=== PATIENT | female | born 1985 | race Caucasian/White ===

== ENCOUNTER 2017-02-04 18:22 | Emergency (ER) | payer SELFPAY ==
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
[2017-02-04 18:39] VITALS: BP 119/81
[2017-02-04] MEDS ORDERED: ACETAMINOPHEN 325 MG TABLET PO ONE (19:50)
== END 2017-02-04 21:42 | disposition left against medical advice (07) ==
LOC: ER 18:22
DX: H92.01 Otalgia, right ear (principal); R42 Dizziness and giddiness; J45.909 Unspecified asthma, uncomplicated; J44.9 Chronic obstructive pulmonary disease, unspecified; Z91.013 Allergy to seafood; Z53.20 Procedure and treatment not carried out because of patient's decision for unspecified reasons
CPT/HCPCS: 99281

== ENCOUNTER 2017-02-13 21:00 | Emergency (ER) | payer SELFPAY ==
[2017-02-14] MEDS ORDERED: HYDROCODONE/ACETAMINOPHEN 5-325 MG TABLET PO ONE (02:10)
--- NOTE | 2017-02-14 02:14 | ER Document Report ---
ED Respiratory Problem - General Chief Complaint: Cold Symptoms Stated Complaint: COUGH Time seen by provider: 02:14 Mode of Arrival: Ambulatory Information source: Patient TRAVEL OUTSIDE OF THE [place] IN LAST 30 DAYS: No - HPI Patient complains to provider of: Cough Onset: Other - 2 months Duration: Intermittent episodes Quality of pain: Achy Severity: Moderate Pain Level: 3 Short of Breath: Mild Cough: Nonproductive Associated symptoms: Congestion, Cough, Fever, Sore Throat Similar symptoms previously: Yes Recently seen / treated by doctor: Yes Notes: Patient is a 31-year-old female with a history of asthma who presents to the emergency room complaining of sinus congestion, sore throat, difficulty swallowing, nonproductive painful cough that's been persistent 2 months, symptoms have been waxing and waning, she previously saw primary care provider and was placed on pseudoephedrine, Mucinex and prednisone, she also use albuterol nebulizers at home, with minimal intermittent relief, she reports over the past 2 days she is also lost her voice - Related Data Allergies/Adverse Reactions: iodine [Iodine] Allergy (Severe, Verified 02/13/17 22:34) swelling shellfish derived Allergy (Verified 02/13/17 22:34) Past Medical History - General Information source: Patient - Social History Smoking Status: Never Smoker Chew tobacco use (# tins/day): No Frequency of alcohol use: None Drug Abuse: None Family History: CAD, Thyroid Disfunction, Other - Asthma, COPD - Past Medical History Cardiac Medical History: Pulmonary Medical History: Reports: Hx Asthma, Hx Bronchitis, Hx COPD, Hx Pneumonia Neurological Medical History: Reports: Hx Migraine, Hx Seizures Endocrine Medical History: Reports: Hx Hyperthyroidism Renal/ Medical History: Reports: Hx Ovarian Cysts. Denies: Hx Peritoneal Dialysis GI Medical History: Reports: Hx Gastroesophageal Reflux Disease, Hx Hiatal Hernia Musculoskeltal Medical History: Reports Hx Musculoskeletal Deformity, Reports Hx Musculoskeletal Trauma Skin Medical History: Psychiatric Medical History: Reports: Hx Anxiety, Hx Attention Deficit Hyperactivity Disorder, Hx Bipolar Disorder, Hx Depression Past Surgical History: Reports: Hx Dilation and Curettage, Hx Gynecologic Surgery - CERVICAL BIOPSY/TIGHTENING OF CERVIX - Immunizations Immunizations up to date: Yes Hx Diphtheria, Pertussis, Tetanus Vaccination: Yes Review of Systems - Review of Systems Constitutional: See HPI EENT: See HPI Cardiovascular: No symptoms reported Respiratory: See HPI Gastrointestinal: No symptoms reported Genitourinary: No symptoms reported Female Genitourinary: No symptoms reported Musculoskeletal: No symptoms reported Skin: No symptoms reported Hematologic/Lymphatic: No symptoms reported Neurological/Psychological: No symptoms reported -: Yes All other systems reviewed and negative Physical Exam - Vital signs Vitals: Temp Pulse Resp BP Pulse Ox 98.3 F 94 16 111/75 97 02/13/17 21:48 02/13/17 21:48 02/13/17 21:48 02/13/17 21:48 02/13/17 21:48 Interpretation: Normal - General General appearance: Appears well, Alert - HEENT Head: Normocephalic, Atraumatic Eyes: Normal Conjunctiva: Normal Extraocular movements intact: Yes Eyelashes: Normal Pupils: PERRL Nasal: Normal Mouth/Lips: Normal Mucous membranes: Normal Pharynx: Erythema Neck: Normal - Respiratory Respiratory status: No respiratory distress Chest status: Tender - Tender to palpate in the right anterior chest wall Breath sounds: Normal Chest palpation: Normal - Cardiovascular Rhythm: Regular Heart sounds: Normal auscultation Murmur: No - Abdominal Inspection: Normal Distension: No distension Bowel sounds: Normal Tenderness: Nontender Organomegaly: No organomegaly - Back Back: Normal, Nontender - Extremities General upper extremity: Normal inspection, Nontender, Normal color, Normal ROM , Normal temperature General lower extremity: Normal inspection, Nontender, Normal color, Normal ROM , Normal temperature, Normal weight bearing. No: Jan's sign - Neurological Neuro grossly intact: Yes Cognition: Normal Orientation: AAOx4 Yash Coma Scale Eye Opening: Spontaneous Yash Coma Scale Verbal: Oriented [place] Coma Scale Motor: Obeys Commands Yash Coma Scale Total: 15 Speech: Normal Motor strength normal: LUE, RUE, LLE, RLE Sensory: Normal - Psychological Associated symptoms: Normal affect, Normal mood - Skin Skin Temperature: Warm Skin Moisture: Dry Skin Color: Normal Course - Re-evaluation Re-evalutation: 02/14/17 05:52 Patient with signs of viral upper respiratory illness, she has tried several treatment modalities at home, which is been unsuccessful, patient was provided with hydrocodone for treatment of her symptoms, advised to follow-up with a primary care provider or return if symptoms worsen, patient acknowledges understanding and agreement with this plan - Vital Signs Vital signs: Temp Pulse Resp BP Pulse Ox 98.2 F 77 16 109/70 98 02/14/17 03:38 02/14/17 03:38 02/14/17 03:38 02/14/17 03:38 02/14/17 03:38 - Diagnostic Test Radiology reviewed: Image reviewed, Reports reviewed Discharge - Discharge Clinical Impression: Viral upper respiratory illness Condition: Stable Disposition: HOME, SELF-CARE Instructions: Upper Respiratory Illness ([facility]), Viral Syndrome ([facility]) Additional Instructions: Follow up with your primary care provider in one to 2 days. Return to the emergency room immediately if symptoms worsen or any additional concerns. Prescriptions: Hydrocodone/Acetaminophen [Hydrocodon-Acetaminophen 5-325] 1 each PO Q6 #20 tablet
[2017-02-14] MEDS ORDERED: HYDROCODONE/ACETAMINOPHEN 5-325 MG 6 TAB/DSPK PO PRN (03:27)
[2017-02-14 03:43] VITALS: BP 109/70
== END 2017-02-14 03:38 | disposition home or self-care (01) ==
LOC: ER 21:00
DX: J06.9 Acute upper respiratory infection, unspecified (principal); B97.89 Other viral agents as the cause of diseases classified elsewhere; R05 Cough; J02.9 Acute pharyngitis, unspecified; R13.10 Dysphagia, unspecified; R49.0 Dysphonia; R09.81 Nasal congestion; J44.9 Chronic obstructive pulmonary disease, unspecified; Z91.013 Allergy to seafood; Z87.01 Personal history of pneumonia (recurrent)
CPT/HCPCS: 71020; 99283

== ENCOUNTER 2017-04-06 11:25 | Emergency (ER) | payer SELFPAY ==
[2017-04-06] MEDS ORDERED: HYDROCODONE/ACETAMINOPHEN 5-325 MG TABLET PO ONE (12:01)
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
[2017-04-06 13:53] VITALS: BP 100/64
== END 2017-04-06 13:52 | disposition home or self-care (01) ==
LOC: ER 11:25
DX: R07.89 Other chest pain (principal); Y09 Assault by unspecified means; J44.9 Chronic obstructive pulmonary disease, unspecified; F17.200 Nicotine dependence, unspecified, uncomplicated
CPT/HCPCS: 71020; 99283

== ENCOUNTER 2017-05-19 18:39 | Emergency (ER) | payer SELFPAY ==
[2017-05-19] MEDS ORDERED: NITROFURANTOIN MONOHYD/M-CRYST 100 MG CAPSULE PO ONE (20:01)
[2017-05-19] MEDS ORDERED: PHENAZOPYRIDINE HCL 200 MG TABLET PO ONE (20:01)
[2017-05-19 20:04] LABS: AMORPHOUS SEDIMENT,URINE TRACE /HPF; APPEARANCE,URINE CLOUDY; BILIRUBIN,URINE NEGATIVE (NEGATIVE); GLUCOSE, URINE NEGATIVE (NEGATIVE); KETONES,URINE NEGATIVE (NEGATIVE); LEUKOCYTE ESTERASE,URINE NEGATIVE (NEGATIVE); NITRITE,URINE POSITIVE (NEGATIVE); PROTEIN,URINE NEGATIVE (NEGATIVE); URINE SPECIFIC GRAVITY 1.015; UROBILINOGEN,URINE NEGATIVE mg/dL (<2.0)
[2017-05-19] MEDS ORDERED: KETOROLAC TROMETHAMINE 60 MG/2 ML SDV IM ONE (20:07)
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
[2017-05-19 20:50] VITALS: BP 148/88
== END 2017-05-19 20:50 | disposition home or self-care (01) ==
LOC: ER 18:39
DX: N39.0 Urinary tract infection, site not specified (principal); J44.9 Chronic obstructive pulmonary disease, unspecified
CPT/HCPCS: 99283; 96372; 81025; 81001; J1885; J3490; J8499

== ENCOUNTER 2017-06-04 12:49 | Emergency (ER) | payer SELFPAY ==
[2017-06-04] MEDS ORDERED: PROMETHAZINE HCL 25 MG TABLET PO ONE (13:55)
[2017-06-04] MEDS ORDERED: IBUPROFEN 600 MG TABLET PO ONE (13:55)
--- NOTE | 2017-06-04 13:57 | ER Document Report ---
ED Medical Screen (RME) - General Chief Complaint: Pelvic Pain Stated Complaint: PELVIC PAIN/PRESSURE Time Seen by Provider: 06/04/17 13:55 Notes: Patient says that she is having difficulty with pain in the lower abdomen. She was here couple of weeks ago for the same pain until she had a UTI and was put on Macrobid and Pyridium. Her symptoms did improve for a couple of days but have worsened and she is now out of her medications. She does not have any vomiting although she is nauseated. She is having urinary frequency and blood in her urine again. Denies fever. No abdominal surgeries. TRAVEL OUTSIDE OF THE [place] IN LAST 30 DAYS: No - Related Data Allergies/Adverse Reactions: iodine [Iodine] Allergy (Severe, Verified 06/04/17 13:05) swelling shellfish derived Allergy (Verified 06/04/17 13:05) Past Medical History - Social History Frequency of alcohol use: None Drug Abuse: None - Past Medical History Cardiac Medical History: Pulmonary Medical History: Reports: Hx Asthma, Hx Bronchitis, Hx COPD, Hx Pneumonia Neurological Medical History: Reports: Hx Migraine, Hx Seizures Endocrine Medical History: Reports: Hx Hyperthyroidism Renal/ Medical History: Reports: Hx Ovarian Cysts. Denies: Hx Peritoneal Dialysis GI Medical History: Reports: Hx Gastroesophageal Reflux Disease, Hx Hiatal Hernia Musculoskeltal Medical History: Reports Hx Musculoskeletal Deformity, Reports Hx Musculoskeletal Trauma Skin Medical History: Psychiatric Medical History: Reports: Hx Anxiety, Hx Attention Deficit Hyperactivity Disorder, Hx Bipolar Disorder, Hx Depression Past Surgical History: Reports: Hx Dilation and Curettage, Hx Gynecologic Surgery - CERVICAL BIOPSY/TIGHTENING OF CERVIX - Immunizations Immunizations up to date: Yes Hx Diphtheria, Pertussis, Tetanus Vaccination: Yes
[2017-06-04 14:11] LABS: ABSOLUTE BASOPHILS # (AUTO) 0.1 10^3/uL (0.0-0.2); ABSOLUTE EOSINOPHILS # (AUTO) 0.2 10^3/uL (0.0-0.6); ABSOLUTE LYMPHOCYTES (AUTO) 1.5 10^3/uL (0.5-4.7); ABSOLUTE MONOCYTES (AUTO) 0.5 10^3/uL (0.1-1.4); ABSOLUTE NEUT (AUTO) 7.2 10^3/uL (1.7-8.2); BASOPHILS % (AUTO) 0.6 % (0-2); EOSINOPHILS % (AUTO) 1.7 % (0-6); HEMATOCRIT 40.2 % (36.0-47.0); HEMOGLOBIN 13.3 g/dL (12.0-15.5); HGB HCT DIFFERENCE -0.3; LYMPHOCYTES % (AUTO) 16.3 % (13-45); MEAN CORPUSCULAR HEMOGLOBIN 29.7 pg (27.0-33.4); MEAN CORPUSCULAR VOLUME 90 fl (80-97); MONOCYTES % (AUTO) 5.2 % (3-13); RED BLOOD COUNT 4.47 10^6/uL (3.72-5.28); RED CELL DISTRIBUTION WIDTH 13.3 % (11.5-14.0); SEGMENTED NEUTROPHILS % (AUTO) 76.2 % (42-78); WHITE BLOOD COUNT 9.4 10^3/uL (4.0-10.5)
[2017-06-04 14:20] LABS: APPEARANCE,URINE CLOUDY; BILIRUBIN,URINE NEGATIVE (NEGATIVE); GLUCOSE, URINE NEGATIVE (NEGATIVE); KETONES,URINE NEGATIVE (NEGATIVE); LEUKOCYTE ESTERASE,URINE SMALL (NEGATIVE); NITRITE,URINE NEGATIVE (NEGATIVE); PROTEIN,URINE 30 mg/dL (NEGATIVE)
[2017-06-04 14:21] LABS: URINE SPECIFIC GRAVITY 1.015
[2017-06-04 14:30] LABS: ALANINE AMINOTRANSFERASE 20 U/L (9-52); ALBUMIN 4.3 g/dL (3.5-5.0); ALKALINE PHOSPHATASE 63 U/L (38-126); ANION GAP 10 (5-19); ASPARTATE AMINO TRANSFERASE 20 U/L (14-36); BILIRUBIN,DIRECT 0.3 mg/dL (0.0-0.4); BILIRUBIN,TOTAL 0.6 mg/dL (0.2-1.3); BLOOD UREA NITROGEN 11 mg/dL (7-20); CALCIUM 9.6 mg/dL (8.4-10.2); CARBON DIOXIDE 26 mmol/L (22-30); CHLORIDE 106 mmol/L (98-107); CREATININE RESULT 0.68 mg/dL (0.52-1.25); GLUCOSE 123 mg/dL (75-110); LIPASE 96.6 U/L (23-300); POTASSIUM 4.7 mmol/L (3.6-5.0); SODIUM 142.3 mmol/L (137-145); TOTAL PROTEIN 7.5 g/dL (6.3-8.2)
[2017-06-04] MEDS ORDERED: NORMAL SALINE 1000 ML 1,000 ML IV ONE (15:09)
[2017-06-04] MEDS ORDERED: CEFTRIAXONE 1 GM/D5W RTU 50 ML IV ONE (15:09)
--- NOTE | 2017-06-04 15:10 | ER Document Report ---
ED GI/ - General Chief Complaint: Pelvic Pain Stated Complaint: PELVIC PAIN/PRESSURE Time Seen by Provider: 06/04/17 13:55 Mode of Arrival: Ambulatory Information source: Patient Notes: Is a 32-year-old female who presents to the ER today for continued pelvic pain after being diagnosed with a UTI on the , stating that it never got better, still burning with urination, hematuria, chills, body aches, now worsened bilateral flank pain whereas before it was just the left flank that hurt. She denies any fever that she knows of. She denies any abnormal vaginal discharge, vaginal bleeding, pain with intercourse. TRAVEL OUTSIDE OF THE [place] IN LAST 30 DAYS: No - Related Data Allergies/Adverse Reactions: iodine [Iodine] Allergy (Severe, Verified 06/04/17 13:05) swelling shellfish derived Allergy (Verified 06/04/17 13:05) Past Medical History - General Information source: Patient - Social History Smoking Status: Never Smoker Frequency of alcohol use: None Drug Abuse: None Family History: CAD, Thyroid Disfunction, Other - Asthma, COPD Patient has suicidal ideation: No Patient has homicidal ideation: No - Past Medical History Cardiac Medical History: Pulmonary Medical History: Reports: Hx Asthma, Hx Bronchitis, Hx COPD, Hx Pneumonia Neurological Medical History: Reports: Hx Migraine, Hx Seizures Endocrine Medical History: Reports: Hx Hyperthyroidism Renal/ Medical History: Reports: Hx Ovarian Cysts. Denies: Hx Peritoneal Dialysis GI Medical History: Reports: Hx Gastroesophageal Reflux Disease, Hx Hiatal Hernia Musculoskeltal Medical History: Reports Hx Musculoskeletal Deformity, Reports Hx Musculoskeletal Trauma Skin Medical History: Psychiatric Medical History: Reports: Hx Anxiety, Hx Attention Deficit Hyperactivity Disorder, Hx Bipolar Disorder, Hx Depression Past Surgical History: Reports: Hx Dilation and Curettage, Hx Gynecologic Surgery - CERVICAL BIOPSY/TIGHTENING OF CERVIX - Immunizations Immunizations up to date: Yes Hx Diphtheria, Pertussis, Tetanus Vaccination: Yes Review of Systems - Review of Systems Constitutional: See HPI EENT: No symptoms reported Cardiovascular: No symptoms reported Respiratory: No symptoms reported Gastrointestinal: No symptoms reported Genitourinary: See HPI Female Genitourinary: No symptoms reported Musculoskeletal: No symptoms reported Skin: No symptoms reported Hematologic/Lymphatic: No symptoms reported Neurological/Psychological: No symptoms reported Physical Exam - Vital signs Vitals: Temp Pulse Resp BP Pulse Ox 98.1 F 80 16 106/76 96 06/04/17 13:06 06/04/17 13:06 06/04/17 13:06 06/04/17 13:06 06/04/17 13:06 - Notes Notes: PHYSICAL EXAMINATION: GENERAL: Uncomfortable, but in no acute distress. HEAD: Atraumatic, normocephalic. EYES: Pupils equal round and reactive to light, extraocular movements intact, sclera anicteric, conjunctiva are normal. NECK: Normal range of motion, supple without lymphadenopathy LUNGS: CTAB and equal. No wheezes rales or rhonchi. HEART: Regular rate and rhythm without murmurs ABDOMEN: Soft, no tenderness. No guarding, no rebound BACK: no vertebral tenderness, normal ROM GI/: left CVA tenderness EXTREMITIES: Normal range of motion, no pitting edema. No cyanosis. NEUROLOGICAL: Cranial nerves grossly intact. Normal sensory/motor exams. PSYCH: Normal mood, normal affect. SKIN: Warm, Dry, normal turgor, no rashes or lesions noted Course - Re-evaluation Re-evalutation: 06/04/17 16:51 Urinalysis shows 70 white blood cells compared to only 4 when diagnosis of UTI occurred on the initially, hematuria on both urinalyses. Will treat patient now with Cipro as she does have flank pain, tenderness. She is afebrile here with normal vital signs and her white count here is normal. - Vital Signs Vital signs: Temp Pulse Resp BP Pulse Ox 98.1 F 64 17 101/64 99 06/04/17 16:28 06/04/17 16:28 06/04/17 16:28 06/04/17 16:28 06/04/17 16:28 - Laboratory Result Diagrams: 06/04/17 14:05 06/04/17 14:05 Laboratory results interpreted by me: 06/04/17 06/04/17 13:06 14:05 Glucose 123 H Urine Protein 30 H Urine Blood SMALL H Urine Urobilinogen 2.0 H Ur Leukocyte Esterase SMALL H Discharge - Discharge Clinical Impression: UTI (urinary tract infection) Qualifiers: Urinary tract infection type: site unspecified Hematuria presence: with hematuria Qualified Code(s): N39.0 - Urinary tract infection, site not specified Condition: Stable Disposition: HOME, SELF-CARE Instructions: Urinary Tract Infection ([facility]) Additional Instructions: Return immediately for any new or worsening symptoms. Follow up with primary care provider, call tomorrow to make followup appointment. Prescriptions: Ciprofloxacin HCl [Cipro 500 mg Tablet] 500 mg PO BID #20 tablet Oxycodone HCl/Acetaminophen [Percocet 5-325 mg Tablet] 1 - 2 tab PO Q4H PRN #15 tablet PRN Reason: Forms: Return to Work
[2017-06-04 16:31] VITALS: BP 101/64
== END 2017-06-04 16:42 | disposition home or self-care (01) ==
LOC: ER 12:49
DX: N39.0 Urinary tract infection, site not specified (principal); R10.2 Pelvic and perineal pain
CPT/HCPCS: 99284; 96365; 36415; 87086; 83690; 84703; 85025; 87088; 80053; 81001; 87186; J7030; J0696

== ENCOUNTER 2017-06-20 01:33 | Emergency (ER) | payer SELFPAY ==
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
[2017-06-20] MEDS ORDERED: DIPHENHYDRAMINE HCL 50 MG/ML VIAL IM ONE (03:35)
[2017-06-20] MEDS ORDERED: MORPHINE SULFATE 10 MG/ML INJ IM ONE (03:35)
[2017-06-20] MEDS ORDERED: ONDANSETRON 4 MG TAB.RAPDIS PO ONE (03:35)
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
[2017-06-20] MEDS ORDERED: ONDANSETRON ODT 4 MG TAB (6 TAB/DSPK) PO PRN (06:13)
[2017-06-20] MEDS ORDERED: HYDROCODONE/ACETAMINOPHEN 5-325 MG 6 TAB/DSPK PO PRN (06:13)
[2017-06-20] MEDS ORDERED: AMOXICILLIN TRIHYDRATE 500 MG CAPSULE PO ONE (06:23)
[2017-06-20 07:18] VITALS: BP 116/80
== END 2017-06-20 07:11 | disposition home or self-care (01) ==
LOC: ER 01:33
DX: S02.40DA Maxillary fracture, left side, initial encounter for closed fracture (principal); Y04.2XXA Assault by strike against or bumped into by another person, initial encounter; R51 Headache; H53.8 Other visual disturbances; R11.0 Nausea; F17.200 Nicotine dependence, unspecified, uncomplicated; J44.9 Chronic obstructive pulmonary disease, unspecified; Z91.013 Allergy to seafood
CPT/HCPCS: 99284; 96372; 70450; 70486; J1200; S0119; J2270

== ENCOUNTER 2017-06-20 20:15 | Emergency (ER) | payer SELFPAY ==
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
[2017-06-20 22:53] VITALS: BP 111/68
== END 2017-06-20 22:54 | disposition home or self-care (01) ==
LOC: ER 20:15
DX: S02.40DA Maxillary fracture, left side, initial encounter for closed fracture (principal); Y09 Assault by unspecified means; F17.200 Nicotine dependence, unspecified, uncomplicated; J44.9 Chronic obstructive pulmonary disease, unspecified
CPT/HCPCS: 99283

== ENCOUNTER 2017-07-02 14:43 | Emergency (ER) | payer SELFPAY ==
[2017-07-02] MEDS ORDERED: OXYCODONE-ACETAMINOPHEN 5-325 MG TABLET PO ONE (15:29)
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
[2017-07-02 17:18] VITALS: BP 101/73
== END 2017-07-02 17:02 | disposition home or self-care (01) ==
LOC: ER 14:43
DX: T81.33XD Disruption of traumatic injury wound repair, subsequent encounter (principal); K08.89 Other specified disorders of teeth and supporting structures; Z98.890 Other specified postprocedural states; Y83.9 Surgical procedure, unspecified as the cause of abnormal reaction of the patient, or of later complication, without mention of misadventure at the time of the procedure
CPT/HCPCS: 99282

== ENCOUNTER 2017-12-17 14:58 | Emergency (ER) | payer SELFPAY ==
[2017-12-17 15:13] VITALS: BP 115/69
[2017-12-17] MEDS ORDERED: CIPROFLOXACIN HCL/DEXAMETH OTIC DROP 7.5 ML AD ONE (17:08)
[2017-12-17] MEDS ORDERED: ACETAMINOPHEN 325 MG TABLET PO ONE (17:08)
[2017-12-17] MEDS ORDERED: DOCUSATE SODIUM 100 MG CAPSULE RT_EAR ONE (17:08)
[2017-12-17] MEDS ORDERED: ALBUTEROL SULFATE 0.083% NEB 2.5 MG/3 ML AMPUL NEB ONE (17:10)
[2017-12-17] MEDS ORDERED: ALBUTEROL SULFATE HFA (90 MCG/PUFF) 8 GM MDI (1 MDI/ER DISP) IH PRN (17:10)
--- NOTE | 2017-12-17 17:10 | ER Document Report ---
ED General - General Chief Complaint: Fever Stated Complaint: EAR PAIN, FEVER Time Seen by Provider: 12/17/17 16:24 Notes: Patient is a 32-year-old female presents emergency department with a chief complaint of right ear pain as well as cough. Patient states that she is a history of asthma has not been taking any inhalers at home. She states she does not have any insurance does not have a doctor so she has no access to an inhaler. Regarding her ear pain she denies any direct trauma. States that it hurts with movement and if she lies on it. She denies any previous history of otitis media. She denies any sick contacts has had intermittent low-grade fevers at home but responded well to Tylenol Motrin. TRAVEL OUTSIDE OF THE [place] IN LAST 30 DAYS: No - Related Data Allergies/Adverse Reactions: iodine [Iodine] Allergy (Severe, Verified 12/17/17 15:51) swelling shellfish derived Allergy (Verified 12/17/17 15:51) Past Medical History - Social History Smoking Status: Never Smoker Chew tobacco use (# tins/day): No Frequency of alcohol use: None Drug Abuse: None Family History: CAD, Thyroid Disfunction, Other - Asthma, COPD Patient has suicidal ideation: No Patient has homicidal ideation: No - Past Medical History Cardiac Medical History: Pulmonary Medical History: Reports: Hx Asthma, Hx Bronchitis, Hx COPD, Hx Pneumonia Neurological Medical History: Reports: Hx Migraine, Hx Seizures Endocrine Medical History: Reports: Hx Hyperthyroidism Renal/ Medical History: Reports: Hx Ovarian Cysts. Denies: Hx Peritoneal Dialysis GI Medical History: Reports: Hx Gastroesophageal Reflux Disease, Hx Hiatal Hernia Musculoskeltal Medical History: Reports Hx Musculoskeletal Deformity, Reports Hx Musculoskeletal Trauma Skin Medical History: Psychiatric Medical History: Reports: Hx Anxiety, Hx Attention Deficit Hyperactivity Disorder, Hx Bipolar Disorder, Hx Depression Traumatic Medical History: Reports: Hx Fractures - Facial fractures Past Surgical History: Reports: Hx Dilation and Curettage, Hx Gynecologic Surgery - CERVICAL BIOPSY/TIGHTENING OF CERVIX - Immunizations Immunizations up to date: Yes Hx Diphtheria, Pertussis, Tetanus Vaccination: Yes Review of Systems - Review of Systems Constitutional: See HPI EENT: See HPI Cardiovascular: No symptoms reported Respiratory: No symptoms reported Gastrointestinal: No symptoms reported Musculoskeletal: No symptoms reported Neurological/Psychological: No symptoms reported -: Yes All other systems reviewed and negative Physical Exam - Vital signs Vitals: Temp Pulse Resp BP Pulse Ox 99.2 F 115 H 16 115/69 98 12/17/17 15:11 12/17/17 15:11 12/17/17 15:11 12/17/17 15:11 12/17/17 15:11 - Notes Notes: PHYSICAL EXAM GENERAL: Alert, interacts well. HEENT: NCAT, pale conjunctiva, extraocular movements intact, pupils PERRL. external ear inflamed with pinna motion tendnerness of the right ear, no evidence of external auditory canal blood/drainage, cerumen impaction, TM intact without evidence of effusion, bulging, injection, MMM, Uvula midline. Airway patent. No evidence of tonsillar enlargement, peritonsillar abscess, retropharyngeal abscess. NECK: Full range of motion. Supple. Trachea midline. LUNGS: Mild expiratory wheezes bilaterally, rales, or rhonchi. No respiratory distress. HEART: Regular rate and rhythm. No murmurs, gallops, or rubs. EXTREMITIES: Moves all 4 extremities spontaneously. No edema, radial and dorsalis pedis pulses 2/4 bilaterally. No cyanosis. NEUROLOGICAL: Alert and oriented x4. Normal speech. PSYCH: Normal affect, normal mood. SKIN: Warm, dry, normal turgor. No rashes or lesions noted. Course - Re-evaluation Re-evalutation: 12/17/17 18:22 Patient is a 32-year-old female is hemodynamically stable, no acute distress and afebrile. Right ear is consistent with otitis externa. Patient also presents with mild asthma exacerbation. Mild wheezing at time of presentation but vitals do not show significant hypoxemia or tachypnea. No retractions. Patient did clinically improve after receiving nebulizers here in the emergency department. Chest x-ray without evidence of an acute pneumonia. Patient able to ambulate without any respiratory distress. Based on patient's overall reassuring assessment, I believe they are stable for outpatient management with steroids. I do not suspect an acute alternative pathology at this time based on history and exam including acute pulmonary embolus, ACS, pneumothorax, or aortic dissection. At this time will discharge with return precautions and follow-up recommendations. Verbal discharge instructions given a the bedside and opportunity for questions given. Medication warnings reviewed. Patient is in agreement with this plan and has verbalized understanding of return precautions and the need for primary care follow-up in the next 24-72 hours. - Vital Signs Vital signs: Temp Pulse Resp BP Pulse Ox 99.2 F 115 H 16 115/69 98 12/17/17 15:11 12/17/17 15:11 12/17/17 15:11 12/17/17 15:11 12/17/17 15:11 - Diagnostic Test Radiology reviewed: Image reviewed, Reports reviewed Discharge - Discharge Clinical Impression: Otitis externa Qualifiers: Otitis externa type: unspecified type Chronicity: acute Laterality: right Qualified Code(s): H60.501 - Unspecified acute noninfective otitis externa, right ear Asthma Qualifiers: Asthma severity: mild Asthma persistence: intermittent Asthma complication type : with acute exacerbation Qualified Code(s): J45.21 - Mild intermittent asthma with (acute) exacerbation Condition: Good Disposition: HOME, SELF-CARE Instructions: Acetaminophen, Asthma ([facility]), Chest Wall Pain ([facility]), Use of Ear Drops ([facility]), Fever ([facility]), Otitis Externa ([facility]) Additional Instructions: Ear drops: 3 drops 2 times a day to the affected ear for 7 days. If it starts to, he complains a little bit a cotton at the tip ear ear. Referrals: [facility] [Provider Group] - Follow up in 1 week
--- NOTE | 2017-12-17 17:34 | RADIOLOGY REPORT (SQ) ---
EXAM DESCRIPTION: CHEST PA/LAT COMPLETED DATE/TIME: 12/17/2017 5:25 pm REASON FOR STUDY: cough COMPARISON: March 2017 EXAM PARAMETERS: NUMBER OF VIEWS: two views TECHNIQUE: Digital Frontal and Lateral radiographic views of the chest acquired. RADIATION DOSE: NA LIMITATIONS: none FINDINGS: LUNGS AND PLEURA: No opacities, masses or pneumothorax. No pleural effusion. MEDIASTINUM AND HILAR STRUCTURES: No masses or contour abnormalities. HEART AND VASCULAR STRUCTURES: Heart normal size. No evidence for failure. BONES: No acute findings. HARDWARE: None in the chest. OTHER: No other significant finding. IMPRESSION: NO SIGNIFICANT RADIOGRAPHIC FINDING IN THE CHEST. TECHNICAL DOCUMENTATION: JOB ID: [id number] [employer]- All Rights Reserved
== END 2017-12-17 18:35 | disposition home or self-care (01) ==
LOC: ER 14:58
DX: J45.21 Mild intermittent asthma with (acute) exacerbation (principal); H60.501 Unspecified acute noninfective otitis externa, right ear; R50.9 Fever, unspecified; R05 Cough
CPT/HCPCS: 94640; 99283; 71046; J3490 ×2

== ENCOUNTER 2017-12-18 16:28 | Emergency (ER) | payer SELFPAY ==
[2017-12-18 17:28] VITALS: BP 106/82
[2017-12-18] MEDS ORDERED: KETOROLAC TROMETHAMINE 60 MG/2 ML SDV IM ONE (19:00)
[2017-12-18 19:39] LABS: A TYPE INFLUENZA AG POSITIVE (NEGATIVE); B INFLUENZA AG NEGATIVE (NEGATIVE)
--- NOTE | 2017-12-18 19:47 | ER Document Report ---
ED General - General Chief Complaint: Fever Stated Complaint: FEVER Time Seen by Provider: 12/18/17 18:53 Mode of Arrival: Medic Information source: Patient, Parent, [facility] Records Notes: 32-year-old female presents with complaints of body aches sore throat earache of 2 day duration. Patient notes she was seen here yesterday was given Ciprodex for her ear infection, is noted that the patient believes that she may have the flu and has not gotten influenza vaccine this year Patient admits to fevers TRAVEL OUTSIDE OF THE [place] IN LAST 30 DAYS: No - HPI Onset: Yesterday Onset/Duration: Persistent Quality of pain: Achy Severity: Mild Pain Level: 1 Associated symptoms: Body/muscle aches, Nonproductive cough, Earache, Fever, Sore throat Exacerbated by: Denies Relieved by: Denies Similar symptoms previously: Yes Recently seen / treated by doctor: Yes - Related Data Allergies/Adverse Reactions: iodine [Iodine] Allergy (Severe, Verified 12/18/17 16:31) swelling shellfish derived Allergy (Verified 12/18/17 16:31) Past Medical History - Social History Smoking Status: Never Smoker Cigarette use (# per day): No Chew tobacco use (# tins/day): No Smoking Education Provided: No Frequency of alcohol use: None Drug Abuse: None Family History: CAD, Thyroid Disfunction, Other - Asthma, COPD Patient has suicidal ideation: No Patient has homicidal ideation: No - Past Medical History Cardiac Medical History: Pulmonary Medical History: Reports: Hx Asthma, Hx Bronchitis, Hx COPD, Hx Pneumonia Neurological Medical History: Reports: Hx Migraine, Hx Seizures Endocrine Medical History: Reports: Hx Hyperthyroidism Renal/ Medical History: Reports: Hx Ovarian Cysts. Denies: Hx Peritoneal Dialysis GI Medical History: Reports: Hx Gastroesophageal Reflux Disease, Hx Hiatal Hernia Musculoskeltal Medical History: Reports Hx Musculoskeletal Deformity, Reports Hx Musculoskeletal Trauma Skin Medical History: Psychiatric Medical History: Reports: Hx Anxiety, Hx Attention Deficit Hyperactivity Disorder, Hx Bipolar Disorder, Hx Depression Traumatic Medical History: Reports: Hx Fractures - Facial fractures Past Surgical History: Reports: Hx Dilation and Curettage, Hx Gynecologic Surgery - CERVICAL BIOPSY/TIGHTENING OF CERVIX - Immunizations Immunizations up to date: Yes Hx Diphtheria, Pertussis, Tetanus Vaccination: Yes Review of Systems - Review of Systems Notes: REVIEW OF SYSTEMS: CONSTITUTIONAL : Admits to fever EENT: Admits to sore throat CARDIOVASCULAR: Denies chest pain. Denies palpitations or racing or irregular heart beat. Denies ankle edema. RESPIRATORY: Admits to cough GASTROINTESTINAL: Denies abdominal pain or distention. Denies nausea, vomiting , or diarrhea. Denies blood in vomitus, stools, or per rectum. Denies black, tarry stools. Denies constipation. GENITOURINARY: Denies difficulty urinating, painful urination, burning, frequency, blood in urine, or discharge. FEMALE GENITOURINARY: Denies vaginal bleeding, heavy or abnormal periods, irregular periods. Denies vaginal discharge or odor. MUSCULOSKELETAL: Admits to body aches SKIN: Denies rash, lesions or sores. HEMATOLOGIC : Denies easy bruising or bleeding. LYMPHATIC: Denies swollen, enlarged glands. NEUROLOGICAL: Denies confusion or altered mental status. Denies passing out or loss of consciousness. Denies dizziness or lightheadedness. Denies headache. Denies weakness or paralysis or loss of use of either side. Denies problems with gait or speech. Denies sensory loss, numbness, or tingling. Denies seizures. PSYCHIATRIC: Denies anxiety or stress. Denies depression, suicidal ideation, or homicidal ideation. ALL OTHER SYSTEMS REVIEWED AND NEGATIVE. PHYSICAL EXAMINATION: GENERAL: Well-appearing, well-nourished and in no acute distress. Febrile HEAD: Atraumatic, normocephalic. EYES: Pupils equal round and reactive to light, extraocular movements intact, conjunctiva are normal. ENT: Nares patent, oropharynx clear without exudates. Moist mucous membranes. There is mild erythema of the internal canal on the right at the bottom, there is no signs of otitis media NECK: Normal range of motion, supple without lymphadenopathy LUNGS: Breath sounds clear to auscultation bilaterally and equal. No wheezes rales or rhonchi. HEART: Regular rate and rhythm without murmurs ABDOMEN: Soft, nontender, nondistended abdomen. No guarding, no rebound. No masses appreciated. Female : deferred Musculoskeletal: Normal range of motion, no pitting or edema. No cyanosis. NEUROLOGICAL: Cranial nerves grossly intact. Normal speech, normal gait. Normal sensory, motor exams PSYCH: Normal mood, normal affect. SKIN: Warm, Dry, normal turgor, no rashes or lesions noted. Dictation was performed using [email or web address] voice recognition software Physical Exam - Vital signs Vitals: Temp Pulse Resp BP Pulse Ox 100.2 F 103 H 16 106/82 95 12/18/17 17:25 12/18/17 17:25 12/18/17 17:25 12/18/17 17:25 12/18/17 17:25 Course - Re-evaluation Re-evalutation: 12/18/17 20:41 Patient's presentation is consistent with influenza, influenza a did come back positive. Patient will be started on Tamiflu. She feels much better after a shot of Toradol was given Otherwise she is stable vital signs note no significant abnormality, she will be discharged home with very close follow-up. I explained my concerns patient states she understands and mother agrees with this plan After performing a Medical Screening Examination, I estimate there is LOW risk for ACUTE CORONARY SYNDROME, PULMONARY EMBOLI, RESPIRATORY FAILURE, SEPSIS OR MENINGITIS, thus I consider the discharge disposition reasonable. I have reevaluated this patient multiple times and no significant life threatening changes are noted. The patient and I have discussed the diagnosis and risks, and we agree with discharging home with close follow-up. We also discussed returning to the Emergency Department immediately if new or worsening symptoms occur. We have discussed the symptoms which are most concerning (e.g., changing or worsening pain, trouble swallowing or breathing, neck stiffness, fever) that necessitate immediate return. - Vital Signs Vital signs: Temp Pulse Resp BP Pulse Ox 100.2 F 103 H 16 106/82 95 12/18/17 17:25 12/18/17 17:25 12/18/17 17:25 12/18/17 17:25 12/18/17 17:25 Discharge - Discharge Clinical Impression: Influenza A, Body aches Fever Qualifiers: Fever type: unspecified Qualified Code(s): R50.9 - Fever, unspecified Condition: Stable Disposition: HOME, SELF-CARE Instructions: Influenza ([facility]) [id number] Additional Instructions: Follow up with your physician tomorrow for further care or return to the ED IMMEDIATELY if symptoms worsen or new concerns occur. If you cannot afford to follow up with your primary care physician a list of low cost clinics have been provided at the end of your discharge papers as well. Prescriptions: Oseltamivir Phosphate [Tamiflu 75 mg Capsule] 75 mg PO BID #10 capsule
== END 2017-12-18 19:50 | disposition home or self-care (01) ==
LOC: ER 16:28
DX: J11.1 Influenza due to unidentified influenza virus with other respiratory manifestations (principal); H66.90 Otitis media, unspecified, unspecified ear; R50.9 Fever, unspecified; M79.1 Myalgia; R05 Cough; J44.9 Chronic obstructive pulmonary disease, unspecified; Z87.01 Personal history of pneumonia (recurrent); Z91.013 Allergy to seafood
CPT/HCPCS: 99283; 96372; 87070; 87880; 87077; 87804; J1885

== ENCOUNTER 2018-02-02 09:35 | Emergency (ER) | payer SELFPAY ==
--- NOTE | 2018-02-02 10:06 | ER Document Report ---
HPI - HPI Pain Level: 3 - REPRODUCTIVE Reproductive: DENIES: : Past Medical History - Social History Family History: CAD, Thyroid Disfunction, Other - Asthma, COPD - Past Medical History Cardiac Medical History: Pulmonary Medical History: Reports: Hx Asthma, Hx Bronchitis, Hx COPD, Hx Pneumonia Neurological Medical History: Reports: Hx Migraine, Hx Seizures Endocrine Medical History: Reports: Hx Hyperthyroidism Renal/ Medical History: Reports: Hx Ovarian Cysts. Denies: Hx Peritoneal Dialysis GI Medical History: Reports: Hx Gastroesophageal Reflux Disease, Hx Hiatal Hernia Musculoskeltal Medical History: Reports Hx Musculoskeletal Deformity, Reports Hx Musculoskeletal Trauma Skin Medical History: Psychiatric Medical History: Reports: Hx Anxiety, Hx Attention Deficit Hyperactivity Disorder, Hx Bipolar Disorder, Hx Depression Traumatic Medical History: Reports: Hx Fractures - Facial fractures Past Surgical History: Reports: Hx Dilation and Curettage, Hx Gynecologic Surgery - CERVICAL BIOPSY/TIGHTENING OF CERVIX - Immunizations Immunizations up to date: Yes Hx Diphtheria, Pertussis, Tetanus Vaccination: Yes Vertical Provider Document - INFECTION CONTROL TRAVEL OUTSIDE OF THE [place] IN LAST 30 DAYS: No - RESPIRATORY O2 Sat by Pulse Oximetry: 98 Course - Vital Signs Vital signs: Temp Pulse Resp BP Pulse Ox 98.7 F 95 18 133/81 H 98 02/02/18 09:41 02/02/18 09:41 02/02/18 09:41 02/02/18 09:41 02/02/18 09:41 Discharge - Discharge Instructions: Anxiety ([facility])
--- NOTE | 2018-02-02 10:27 | ER Document Report ---
ED Psych Disorder / Suicide - General Chief Complaint: Anxiety Stated Complaint: MEDICATION REFILL Time Seen by Provider: 02/02/18 10:06 Mode of Arrival: Ambulatory Information source: Patient Notes: 32-year-old female complaining of needing her psychiatric medicine refilled. She tried to get an appointment at [facility] and they told her to come to the emergency room and get started on her medications and they would see her on February 19. She is anxious, depressed, denies suicidal ideation, feels like her brain is going to explode, crying all the time, unable to sleep. Many extra stressors recently. TRAVEL OUTSIDE OF THE [place] IN LAST 30 DAYS: No - Related Data Allergies/Adverse Reactions: iodine [Iodine] Allergy (Severe, Verified 02/02/18 09:36) swelling shellfish derived Allergy (Verified 02/02/18 09:36) Past Medical History - General Information source: Patient - Social History Smoking Status: Current Every Day Smoker Frequency of alcohol use: None Drug Abuse: None Lives with: Alone Family History: CAD, Thyroid Disfunction, Other - Asthma, COPD Patient has suicidal ideation: No Patient has homicidal ideation: No - Past Medical History Cardiac Medical History: Pulmonary Medical History: Reports: Hx Asthma, Hx Bronchitis, Hx COPD, Hx Pneumonia Neurological Medical History: Reports: Hx Migraine, Hx Seizures Endocrine Medical History: Reports: Hx Hyperthyroidism Renal/ Medical History: Reports: Hx Ovarian Cysts. Denies: Hx Peritoneal Dialysis GI Medical History: Reports: Hx Gastroesophageal Reflux Disease, Hx Hiatal Hernia Musculoskeltal Medical History: Reports Hx Musculoskeletal Deformity, Reports Hx Musculoskeletal Trauma Skin Medical History: Psychiatric Medical History: Reports: Hx Anxiety, Hx Attention Deficit Hyperactivity Disorder, Hx Bipolar Disorder, Hx Depression Traumatic Medical History: Reports: Hx Fractures - Facial fractures Past Surgical History: Reports: Hx Dilation and Curettage, Hx Gynecologic Surgery - CERVICAL BIOPSY/TIGHTENING OF CERVIX - Immunizations Immunizations up to date: Yes Hx Diphtheria, Pertussis, Tetanus Vaccination: Yes Review of Systems - Review of Systems Constitutional: No symptoms reported EENT: No symptoms reported Cardiovascular: No symptoms reported Respiratory: No symptoms reported Gastrointestinal: No symptoms reported Genitourinary: No symptoms reported Female Genitourinary: No symptoms reported Musculoskeletal: No symptoms reported Skin: No symptoms reported Hematologic/Lymphatic: No symptoms reported Neurological/Psychological: See HPI Physical Exam - Vital signs Vitals: Temp Pulse Resp BP Pulse Ox 98.7 F 95 18 133/81 H 98 02/02/18 09:41 02/02/18 09:41 02/02/18 09:41 02/02/18 09:41 02/02/18 09:41 Interpretation: Normal - General General appearance: Appears well, Alert - HEENT Head: Normocephalic, Atraumatic Eyes: Normal Conjunctiva: Normal Pupils: PERRL Neck: Supple - Respiratory Respiratory status: No respiratory distress Chest status: Nontender Breath sounds: Normal Chest palpation: Normal - Cardiovascular Rhythm: Regular Heart sounds: Normal auscultation Murmur: No - Abdominal Inspection: Normal Distension: No distension Bowel sounds: Normal Tenderness: Nontender Organomegaly: No organomegaly - Back Back: Normal, Nontender - Extremities General upper extremity: Normal inspection, Nontender, Normal color, Normal ROM , Normal temperature General lower extremity: Normal inspection, Nontender, Normal color, Normal ROM , Normal temperature, Normal weight bearing. No: Jan's sign - Neurological Neuro grossly intact: Yes Cognition: Normal Orientation: AAOx4 Yash Coma Scale Eye Opening: Spontaneous [place] Coma Scale Verbal: Oriented [place] Coma Scale Motor: Obeys Commands [place] Coma Scale Total: 15 Speech: Normal Motor strength normal: LUE, RUE, LLE, RLE Sensory: Normal - Psychological Associated symptoms: Anxious, Depressed, Flight of ideas, Tearful, Unable to sleep - Skin Skin Temperature: Warm Skin Moisture: Dry Skin Color: Normal Course - Re-evaluation Re-evalutation: 02/02/18 11:52 psych is in the room to see the pt. 02/02/18 12:36 Dr. Levi recommends BuSpar 10 mg every night for sleep otherwise no other medications. She has been given the follow-up for mobile crisis and also she will [facility]. - Vital Signs Vital signs: Temp Pulse Resp BP Pulse Ox 98.8 F 94 16 124/85 98 02/02/18 12:40 02/02/18 12:40 02/02/18 12:40 02/02/18 12:40 02/02/18 12:40 Discharge - Discharge Clinical Impression: Anxiety, Depression, Situational stress Condition: Good Disposition: HOME, SELF-CARE Instructions: Anxiety ([facility]), Depression ([facility]) Additional Instructions: see [facility] as planned you have been given the resource number for mobile crisis return immediatey to ER any thoughts of suicide Prescriptions: Buspirone HCl [Buspar 10 mg Tablet] 10 mg PO QPM #30 tab
[2018-02-02 12:42] VITALS: BP 124/85
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
== END 2018-02-02 12:42 | disposition home or self-care (01) ==
LOC: ER 09:35
DX: Z76.0 Encounter for issue of repeat prescription (principal); F41.9 Anxiety disorder, unspecified; F32.9 Major depressive disorder, single episode, unspecified; F43.9 Reaction to severe stress, unspecified; J44.9 Chronic obstructive pulmonary disease, unspecified; F17.200 Nicotine dependence, unspecified, uncomplicated; Z91.013 Allergy to seafood
CPT/HCPCS: 99283

== ENCOUNTER 2018-03-17 13:29 | Emergency (ER) | payer SELFPAY ==
[2018-03-17] MEDS ORDERED: MORPHINE SULFATE 10 MG/ML INJ IM ONE (14:36)
--- NOTE | 2018-03-17 14:37 | ER Document Report ---
ED Medical Screen (RME) - General Chief Complaint: Jaw Pain Stated Complaint: JAW/EAR PAIN Time Seen by Provider: 03/17/18 14:35 Notes: Patient states that she has had multiple facial surgeries for reconstruction. She states she has had multiple right ear infections. She states now her right jaw for the last 2 days has been "locked shut". She states she is only able to drink through a straw. She states she is having severe pain on the side. TRAVEL OUTSIDE OF THE [place] IN LAST 30 DAYS: No - Related Data Allergies/Adverse Reactions: iodine [Iodine] Allergy (Severe, Verified 02/02/18 09:36) swelling shellfish derived Allergy (Verified 02/02/18 09:36) Past Medical History - Social History Chew tobacco use (# tins/day): No Frequency of alcohol use: None Drug Abuse: None - Past Medical History Cardiac Medical History: Pulmonary Medical History: Reports: Hx Asthma, Hx Bronchitis, Hx COPD, Hx Pneumonia Neurological Medical History: Reports: Hx Migraine, Hx Seizures Endocrine Medical History: Reports: Hx Hyperthyroidism Renal/ Medical History: Reports: Hx Ovarian Cysts. Denies: Hx Peritoneal Dialysis GI Medical History: Reports: Hx Gastroesophageal Reflux Disease, Hx Hiatal Hernia Musculoskeltal Medical History: Reports Hx Musculoskeletal Deformity, Reports Hx Musculoskeletal Trauma Skin Medical History: Psychiatric Medical History: Reports: Hx Anxiety, Hx Attention Deficit Hyperactivity Disorder, Hx Bipolar Disorder, Hx Depression Traumatic Medical History: Reports: Hx Fractures - Facial fractures Past Surgical History: Reports: Hx Dilation and Curettage, Hx Gynecologic Surgery - CERVICAL BIOPSY/TIGHTENING OF CERVIX - Immunizations Immunizations up to date: Yes Hx Diphtheria, Pertussis, Tetanus Vaccination: Yes Physical Exam - Vital signs Vitals: Temp Pulse Resp BP Pulse Ox 98.6 F 93 15 115/78 96 03/17/18 13:36 03/17/18 13:36 03/17/18 13:36 03/17/18 13:36 03/17/18 13:36 Course - Vital Signs Vital signs: Temp Pulse Resp BP Pulse Ox 98.6 F 93 16 115/78 96 03/17/18 13:36 03/17/18 13:36 03/17/18 14:07 03/17/18 13:36 03/17/18 13:36
[2018-03-17 14:52] LABS: ABSOLUTE BASOPHILS # (AUTO) 0.1 10^3/uL (0.0-0.2); ABSOLUTE EOSINOPHILS # (AUTO) 0.2 10^3/uL (0.0-0.6); ABSOLUTE LYMPHOCYTES (AUTO) 2.1 10^3/uL (0.5-4.7); ABSOLUTE MONOCYTES (AUTO) 0.5 10^3/uL (0.1-1.4); BASOPHILS % (AUTO) 0.9 % (0-2); EOSINOPHILS % (AUTO) 1.7 % (0-6); HEMATOCRIT 42.6 % (36.0-47.0); HEMOGLOBIN 14.4 g/dL (12.0-15.5); LYMPHOCYTES % (AUTO) 21.1 % (13-45); MEAN CORPUSCULAR HGB CONC 33.9 g/dL (32.0-36.0); MEAN CORPUSCULAR VOLUME 89 fl (80-97); MONOCYTES % (AUTO) 5.2 % (3-13); PLATELET COUNT 366 10^3/uL (150-450); RED BLOOD COUNT 4.82 10^6/uL (3.72-5.28); RED CELL DISTRIBUTION WIDTH 14.1 % (11.5-14.0); SEGMENTED NEUTROPHILS % (AUTO) 71.1 % (42-78); TOTAL CELLS COUNTED % (AUTO) 100 %; WHITE BLOOD COUNT 9.9 10^3/uL (4.0-10.5)
[2018-03-17 15:18] LABS: ALANINE AMINOTRANSFERASE 20 U/L (9-52); ALBUMIN 4.9 g/dL (3.5-5.0); ALKALINE PHOSPHATASE 67 U/L (38-126); ANION GAP 12 (5-19); ASPARTATE AMINO TRANSFERASE 22 U/L (14-36); BILIRUBIN,DIRECT 0.3 mg/dL (0.0-0.4); BILIRUBIN,TOTAL 0.3 mg/dL (0.2-1.3); BLOOD UREA NITROGEN 14 mg/dL (7-20); CALCIUM 10.1 mg/dL (8.4-10.2); CARBON DIOXIDE 27 mmol/L (22-30); CHLORIDE 104 mmol/L (98-107); GLUCOSE 103 mg/dL (75-110); POTASSIUM 4.5 mmol/L (3.6-5.0); SODIUM 143.3 mmol/L (137-145); TOTAL PROTEIN 7.5 g/dL (6.3-8.2)
[2018-03-17] MEDS ORDERED: LIDOCAINE 4% TOPICAL SOLN 50 ML TOP ONE (16:05)
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
[2018-03-17 16:46] VITALS: BP 113/78
== END 2018-03-17 16:49 | disposition home or self-care (01) ==
LOC: ER 13:29
DX: R68.84 Jaw pain (principal); G89.29 Other chronic pain; H92.01 Otalgia, right ear; J44.9 Chronic obstructive pulmonary disease, unspecified; Z98.890 Other specified postprocedural states; Z91.013 Allergy to seafood; Z87.891 Personal history of nicotine dependence
CPT/HCPCS: 99283; 96372; 36415; 85025; 80053; J3490; J2270

== ENCOUNTER 2018-04-20 15:03 | Emergency (ER) | payer SELFPAY ==
[2018-04-20 15:10] VITALS: BP 118/76
[2018-04-20] MEDS ORDERED: LORATADINE 10 MG TABLET PO ONE (16:14)
[2018-04-20] MEDS ORDERED: PREDNISONE 20 MG TABLET PO ONE (16:14)
[2018-04-20] MEDS ORDERED: GUAIFENESIN 600 MG TABLET.SA PO ONE (16:14)
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
[2018-04-20] MEDS ORDERED: HYDROCODONE/ACETAMINOPHEN 5-325 MG TABLET PO ONE (17:17)
== END 2018-04-20 17:34 | disposition home or self-care (01) ==
LOC: ER 15:03
DX: J02.9 Acute pharyngitis, unspecified (principal); H69.81 Other specified disorders of Eustachian tube, right ear; J44.9 Chronic obstructive pulmonary disease, unspecified; Z91.013 Allergy to seafood
CPT/HCPCS: 99283; 87070; 87880; J7512

== ENCOUNTER 2018-05-07 21:44 | Emergency (ER) | payer SELFPAY ==
[2018-05-07 22:03] VITALS: BP 111/82
[2018-05-07] MEDS ORDERED: OXYCODONE-ACETAMINOPHEN 5-325 MG TABLET PO ONE (22:18)
[2018-05-07] MEDS ORDERED: AMOXICILLIN TR/POT CLAVULANATE 250-125 MG TAB PO ONE (22:18)
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
== END 2018-05-07 22:35 | disposition home or self-care (01) ==
LOC: ER 21:44
DX: H92.01 Otalgia, right ear (principal); M54.2 Cervicalgia; F17.200 Nicotine dependence, unspecified, uncomplicated; J44.9 Chronic obstructive pulmonary disease, unspecified
CPT/HCPCS: 99282; J3490

== ENCOUNTER 2018-08-23 13:26 | Emergency (ER) | payer SELFPAY ==
[2018-08-23 13:48] VITALS: BP 120/61
[2018-08-23] MEDS ORDERED: KETOROLAC TROMETHAMINE 60 MG/2 ML SDV IM ONE (13:58)
[2018-08-23] MEDS ORDERED: LIDOCAINE 5% (700 MG) TRANSDERMAL ADH..PATCH TP ONE (13:59)
[2018-08-23 14:06] LABS: APPEARANCE,URINE SLIGHTLY-CLOUDY; BILIRUBIN,URINE NEGATIVE (NEGATIVE); COLOR,URINE DARK YELLOW; GLUCOSE, URINE NEGATIVE (NEGATIVE); KETONES,URINE NEGATIVE (NEGATIVE); LEUKOCYTE ESTERASE,URINE TRACE (NEGATIVE); NITRITE,URINE NEGATIVE (NEGATIVE); PROTEIN,URINE NEGATIVE (NEGATIVE); URINE SPECIFIC GRAVITY 1.027
[2018-08-23 14:46] LABS: ABSOLUTE BASOPHILS # (AUTO) 0.1 10^3/uL (0.0-0.2); ABSOLUTE EOSINOPHILS # (AUTO) 0.3 10^3/uL (0.0-0.6); ABSOLUTE LYMPHOCYTES (AUTO) 1.9 10^3/uL (0.5-4.7); ABSOLUTE MONOCYTES (AUTO) 0.5 10^3/uL (0.1-1.4); ABSOLUTE NEUT (AUTO) 3.2 10^3/uL (1.7-8.2); BASOPHILS % (AUTO) 1.3 % (0-2); EOSINOPHILS % (AUTO) 5.7 % (0-6); HEMATOCRIT 37.6 % (36.0-47.0); HEMOGLOBIN 12.9 g/dL (12.0-15.5); LYMPHOCYTES % (AUTO) 31.8 % (13-45); MEAN CORPUSCULAR HEMOGLOBIN 30.3 pg (27.0-33.4); MEAN CORPUSCULAR HGB CONC 34.4 g/dL (32.0-36.0); MEAN CORPUSCULAR VOLUME 88 fl (80-97); MONOCYTES % (AUTO) 8.7 % (3-13); PLATELET COUNT 314 10^3/uL (150-450); RED BLOOD COUNT 4.26 10^6/uL (3.72-5.28); RED CELL DISTRIBUTION WIDTH 13.6 % (11.5-14.0); SEGMENTED NEUTROPHILS % (AUTO) 52.5 % (42-78); TOTAL CELLS COUNTED % (AUTO) 100 %; WHITE BLOOD COUNT 6.1 10^3/uL (4.0-10.5)
[2018-08-23 15:04] LABS: ALANINE AMINOTRANSFERASE 20 U/L (9-52); ALKALINE PHOSPHATASE 55 U/L (38-126); ANION GAP 5 (5-19); ASPARTATE AMINO TRANSFERASE 21 U/L (14-36); BILIRUBIN,DIRECT 0.4 mg/dL (0.0-0.4); BILIRUBIN,TOTAL 0.5 mg/dL (0.2-1.3); BLOOD UREA NITROGEN 10 mg/dL (7-20); CALCIUM 9.2 mg/dL (8.4-10.2); CARBON DIOXIDE 28 mmol/L (22-30); CHLORIDE 103 mmol/L (98-107); GLUCOSE 84 mg/dL (75-110); LIPASE 106.7 U/L (23-300); POTASSIUM 4.7 mmol/L (3.6-5.0); SODIUM 135.7 mmol/L (137-145); TOTAL PROTEIN 6.7 g/dL (6.3-8.2)
[2018-08-23] MEDS ORDERED: ACETAMINOPHEN 325 MG TABLET PO ONE (15:07)
[2018-08-23] MEDS ORDERED: IBUPROFEN 600 MG TABLET PO ONE (15:07)
--- NOTE | 2018-08-23 15:23 | RADIOLOGY REPORT (SQ) ---
EXAM DESCRIPTION: CT LTD RENAL STONE PROTOCOL ON COMPLETED DATE/TIME: 08/23/2018 3:10 pm REASON FOR STUDY: left flank pain COMPARISON: CT abdomen pelvis 03/02/2014 TECHNIQUE: CT scan of the abdomen and pelvis performed without intravenous or oral contrast. Images reviewed with lung, soft tissue, and bone windows. Reconstructed coronal and sagittal MPR images revi ewed. All images stored on PACS. All CT scanners at this facility use dose modulation, iterative reconstruction, and/or weight based d osing when appropriate to reduce radiation dose to as low as reasonably achievable (ALARA). [facility]: Dose Right [facility]: CareDose [facility]: Dose Right [facility]: Teradose 4D [facility]: Bio RADIATION DOSE: CT Rad equipment meets quality standard of care and radiation dose reduction techniq ues were employed. CTDIvol: 4.8 mGy. DLP: 227 mGy-cm.mGy. LIMITATIONS: None. FINDINGS: LOWER CHEST: No significant findings. No nodules or infiltrates. NON-CONTRASTED LIVER, SPLEEN, ADRENALS: Evaluation limited by lack of IV contrast. No identified sign ificant masses. PANCREAS: No masses. No peripancreatic inflammatory changes. GALLBLADDER: No identified stones by CT criteria. No inflammatory changes to suggest cholecystitis. RIGHT KIDNEY AND URETER: No suspicious masses. Assessment limited by lack of IV contrast. No signif icant calcifications. No hydronephrosis or hydroureter. LEFT KIDNEY AND URETER: No suspicious masses. Assessment limited by lack of IV contrast. No signifi cant calcifications. No hydronephrosis or hydroureter. AORTA AND RETROPERITONEUM: No aneurysm. No retroperitoneal masses or adenopathy. BOWEL AND PERITONEAL CAVITY: Moderate stool throughout the colon. No obvious masses or inflammatory changes. No free fluid. APPENDIX: Normal. PELVIS, BLADDER, AND ABDOMINAL WALL:No abnormal masses. No free fluid. Bladder normal. BONES: No significant findings. OTHER: No other significant finding. IMPRESSION: NO SIGNIFICANT OR ACUTE PROCESS IN THE ABDOMEN OR PELVIS. COMMENT: Quality ID # [id number]: Final reports with documentation of one or more dose reduction techniques (e.g., Automated exposure control, adjustment of the mA and/or kV according to patient size, use of iterative reconstruction technique) TECHNICAL DOCUMENTATION: JOB ID: [id number] [employer]- All Rights Reserved Reading location - IP/workstation name: [facility]
--- NOTE | 2018-08-23 15:39 | ER Document Report ---
ED General - General Chief Complaint: Flank Pain Stated Complaint: ABDOMINAL PAIN Time Seen by Provider: 08/23/18 13:51 TRAVEL OUTSIDE OF THE [place] IN LAST 30 DAYS: No - HPI Patient complains to provider of: Flank pain Notes: Patient coming in left flank pain radiating down to the groin with trouble in urinating denies exact dysuria denies any fever chills nausea vomiting diarrhea patient states has a history kidney stones in the past however flank pain is tender to touch. Patient otherwise looks nontoxic upon my evaluation denies any trauma denies any recent antibiotics - Related Data Allergies/Adverse Reactions: iodine [Iodine] Allergy (Severe, Verified 08/23/18 13:35) swelling shellfish derived Allergy (Verified 08/23/18 13:35) Past Medical History - Social History Smoking Status: Unknown if Ever Smoked Chew tobacco use (# tins/day): No Frequency of alcohol use: None Drug Abuse: None Family History: CAD, Thyroid Disfunction, Other - Asthma, COPD Patient has suicidal ideation: No Patient has homicidal ideation: No - Past Medical History Cardiac Medical History: Pulmonary Medical History: Reports: Hx Asthma - CHILDHOOD, Hx Bronchitis, Hx COPD, Hx Pneumonia Neurological Medical History: Reports: Hx Migraine, Hx Seizures Endocrine Medical History: Reports: Hx Hyperthyroidism Renal/ Medical History: Reports: Hx Kidney Stones, Hx Ovarian Cysts. Denies: Hx Peritoneal Dialysis GI Medical History: Reports: Hx Gastroesophageal Reflux Disease, Hx Hiatal Hernia Musculoskeletal Medical History: Reports Hx Musculoskeletal Deformity, Reports Hx Musculoskeletal Trauma Skin Medical History: Psychiatric Medical History: Reports: Hx Anxiety, Hx Attention Deficit Hyperactivity Disorder, Hx Bipolar Disorder, Hx Depression Traumatic Medical History: Reports: Hx Fractures - Facial fractures Past Surgical History: Reports: Hx Dilation and Curettage, Hx Gynecologic Surgery - CERVICAL BIOPSY/TIGHTENING OF CERVIX, Hx Orthopedic Surgery - FACIAL PLATES - Immunizations Immunizations up to date: Yes Hx Diphtheria, Pertussis, Tetanus Vaccination: Yes Review of Systems - Review of Systems Constitutional: No symptoms reported EENT: No symptoms reported Cardiovascular: No symptoms reported Respiratory: No symptoms reported Gastrointestinal: No symptoms reported Genitourinary: Flank pain Female Genitourinary: No symptoms reported Musculoskeletal: No symptoms reported Skin: No symptoms reported Hematologic/Lymphatic: No symptoms reported Neurological/Psychological: No symptoms reported -: Yes All other systems reviewed and negative Physical Exam - Vital signs Vitals: Temp Pulse Resp BP Pulse Ox 97.2 F 88 14 120/61 98 08/23/18 13:46 08/23/18 13:46 08/23/18 13:46 08/23/18 13:46 08/23/18 13:46 Interpretation: Normal - General General appearance: Appears well, Alert - HEENT Head: Normocephalic, Atraumatic Eyes: Normal Pupils: PERRL - Respiratory Respiratory status: No respiratory distress Chest status: Nontender Breath sounds: Normal Chest palpation: Normal - Cardiovascular Rhythm: Regular Heart sounds: Normal auscultation Murmur: No - Abdominal Inspection: Normal Distension: No distension Bowel sounds: Normal Tenderness: Nontender Organomegaly: No organomegaly - Back Back: Normal, Tender - Left paraspinal muscles are tender to palpation no rashes no trauma. No: CVA tenderness - Extremities General upper extremity: Normal inspection, Nontender, Normal color, Normal ROM , Normal temperature General lower extremity: Normal inspection, Nontender, Normal color, Normal ROM , Normal temperature, Normal weight bearing. No: Jan's sign - Neurological Neuro grossly intact: Yes Cognition: Normal Orientation: AAOx4 Ola Coma Scale Eye Opening: Spontaneous Ola Coma Scale Verbal: Oriented Yash Coma Scale Motor: Obeys Commands Ola Coma Scale Total: 15 Speech: Normal Motor strength normal: LUE, RUE, LLE, RLE Sensory: Normal - Psychological Associated symptoms: Normal affect, Normal mood - Skin Skin Temperature: Warm Skin Moisture: Dry Skin Color: Normal Course - Re-evaluation Re-evalutation: 08/23/18 20:16 Workup was negative for any acute pathology including a kidney stone or urinary tract infection. Patient was in the pit area and had requested further pain control. Tylenol Motrin was ordered for the patient upon trying to administer this patient was on her cell phone and declined I explained to the nursing staff that we will be discharging the patient soon is that all critical etiologies have been evaluated for and eliminated more likely muscle skeletal cause patient will be given a prescription for Motrin Tylenol and also prescription for Ultram. Upon explained to the patient that she would be discharged patient refused to sign grabbed her paperwork and prescriptions and proceeded to leave the ER prior to my final evaluation. - Vital Signs Vital signs: Temp Pulse Resp BP Pulse Ox 97.2 F 88 14 120/61 98 08/23/18 13:46 08/23/18 13:46 08/23/18 13:46 08/23/18 13:46 08/23/18 13:46 - Laboratory Result Diagrams: 08/23/18 14:08 08/23/18 14:08 Laboratory results interpreted by me: 08/23/18 08/23/18 13:40 14:08 Sodium 135.7 L Urine Urobilinogen 4.0 H Ur Leukocyte Esterase TRACE H Discharge - Discharge Clinical Impression: Flank pain Condition: Good Disposition: HOME, SELF-CARE Instructions: Flank Pain ([facility]) Additional Instructions: Your CAT scan laboratory studies did not show any signs of kidney stones or infection or any other critical pathology. More likely her pain is from a muscle skeletal cause. I would highly recommend she can take the Tylenol Motrin as prescribed. He may use the Ultram as prescribed for severe pain return to ER symptoms worsen. Prescriptions: Ibuprofen [Motrin 600 mg Tablet] 600 mg PO Q8HP PRN #21 tablet PRN Reason: Tramadol HCl [Ultram 50 mg Tablet] 50 mg PO ASDIR PRN #10 tablet PRN Reason: Referrals: LOCALMD,NO [NO LOCAL MD] - Follow up as needed
== END 2018-08-23 15:44 | disposition home or self-care (01) ==
LOC: ER 13:26
DX: R10.9 Unspecified abdominal pain (principal); Z87.442 Personal history of urinary calculi
CPT/HCPCS: 99284; 96372; 36415; 83690; 85025; 81025; 80053; 81001; 76380; J1885

== ENCOUNTER 2018-10-23 09:54 | Emergency (ER) | payer SELFPAY ==
--- NOTE | 2018-10-23 10:29 | ER Document Report ---
HPI - HPI Patient complains to provider of: Cough congestion fever sore throat Time Seen by Provider: 10/23/18 10:18 Onset: Last week Onset/Duration: Persistent Quality of pain: Achy, Sharp Pain Level: 4 Context: 33-year-old female presents to ED for complaint of cough cold congestion sore throat and fever for a week. She states the pain is worse on inspiration. She states it is starting to make her ribs hurt due to the coughing. Patient is alert and oriented respirations regular and unlabored speaking with full sentences ambulates with a even steady gait. Associated Symptoms: Body/muscle aches - With rib pain due to cough and, Productive cough, Sinus pain/drainage, Shortness of breath, Sore throat Exacerbated by: Coughing Relieved by: Denies Similar symptoms previously: Yes Recently seen / treated by doctor: No - ROS ROS below otherwise negative: Yes - CONSTITUTIONAL Constitutional: REPORTS: Fever, Chills - EENT EENT: REPORTS: Sore Throat, Nasal Drainage-Purulent, Congestion - NEURO Neurology: DENIES: Headache, Weakness, Vision blurred, Dizzinesss / Vertigo - CARDIOVASCULAR Cardiovascular: REPORTS: Chest pain - With coughing - RESPIRATORY Respiratory: REPORTS: Coughing. DENIES: Trouble Breathing - GASTROINTESTINAL Gastrointestinal: DENIES: Abdominal Pain, Nausea, Patient vomiting, Diarrhea, Constipation, Black / Bloody Stools - URINARY Urinary: DENIES: Dysuria, Urgency, Frequency - REPRODUCTIVE Reproductive: DENIES: :, Postmenopausal, Abnormal bleeding / discharge - MUSCULOSKELETAL Musculoskeletal: DENIES: Extremity pain - Body aches, Back Pain, Neck Pain, Swelling - DERM Skin Color: Normal Skin Problems: None Past Medical History - General Information source: Patient - Social History Smoking Status: Former Smoker - That she quit 2 years ago Frequency of alcohol use: None Drug Abuse: None Lives with: Family Family History: CAD, Thyroid Disfunction, Other - Asthma, COPD Patient has suicidal ideation: No Patient has homicidal ideation: No - Past Medical History Cardiac Medical History: Reports: None Pulmonary Medical History: Reports: Hx Asthma - CHILDHOOD, Hx Bronchitis, Hx COPD, Hx Pneumonia EENT Medical History: Reports: None Neurological Medical History: Reports: Hx Migraine, Hx Seizures Endocrine Medical History: Reports: Hx Hyperthyroidism Renal/ Medical History: Reports: Hx Kidney Stones, Hx Ovarian Cysts Malignancy Medical History: Reports: None GI Medical History: Reports: Hx Gastroesophageal Reflux Disease, Hx Hiatal Hernia Musculoskeletal Medical History: Reports Hx Musculoskeletal Deformity, Reports Hx Musculoskeletal Trauma Skin Medical History: Reports None Psychiatric Medical History: Reports: Hx Anxiety, Hx Attention Deficit Hyperactivity Disorder, Hx Bipolar Disorder, Hx Depression Traumatic Medical History: Reports: Hx Fractures - Facial fractures Infectious Medical History: Reports: None Past Surgical History: Reports: Hx Dilation and Curettage, Hx Gynecologic Surgery - CERVICAL BIOPSY/TIGHTENING OF CERVIX, Hx Orthopedic Surgery - FACIAL PLATES - Immunizations Immunizations up to date: Yes Hx Diphtheria, Pertussis, Tetanus Vaccination: Yes Vertical Provider Document - CONSTITUTIONAL Notes: PHYSICAL EXAMINATION: GENERAL: Well-appearing, well-nourished and in no acute distress. HEAD: Atraumatic, normocephalic. EYES: sclera anicteric, conjunctiva are normal. ENT: Nasal mucosa mildly inflamed swollen yellowish green drainage with postnasal drip no enlargement of the tonsils no inflammation to the throat NECK: Normal range of motion coughing with same greenish yellow expectorant. LUNGS: Normal work of breathing planes of tenderness to the ribs states worse with coughing HEART: 2+ radial pulses bilaterally EXTREMITIES: no pitting or edema. No cyanosis. NEUROLOGICAL: No focal neurological deficits. Moves all extremities spontaneously and on command. PSYCH: Normal mood, normal affect. SKIN: Warm, Dry, normal turgor, no rashes or lesions noted. - INFECTION CONTROL TRAVEL OUTSIDE OF THE [place] IN LAST 30 DAYS: No Course - Vital Signs Vital signs: Temp Pulse Resp BP Pulse Ox 98.3 F 89 16 102/76 97 10/23/18 10:01 10/23/18 10:01 10/23/18 10:01 10/23/18 10:01 10/23/18 10:01 - Diagnostic Test Radiology reviewed: Image reviewed, Reports reviewed Discharge - Discharge Clinical Impression: Viral sore throat URI (upper respiratory infection) Qualifiers: URI type: unspecified URI Qualified Code(s): J06.9 - Acute upper respiratory infection, unspecified Condition: Stable Disposition: HOME, SELF-CARE Instructions: Family Physicians / Practices Additional Instructions: UPPER RESPIRATORY ILLNESS: You have a viral infection of the respiratory passages -- a "cold." This common infection causes nasal congestion, drainage, and often sore throat and cough. It is highly contagious. The disease usually lasts about 10 to 14 days. There is no "cure" for the viral infection -- it must run its course. If there is a complication, such as bacterial infection in the nose, sinuses, middle ear, or bronchial tubes, antibiotics may be required. The antibiotics won't affect the virus. Drink plenty of fluids. A humidifier may help. An expectorant medication or decongestant may make you more comfortable. Use acetaminophen or ibuprofen for fever or aches. See the doctor if fever persists over two days, if there is any significant worsening of your symptoms, or if you simply fail to improve as expected. DECONGESTANT MEDICATION: A decongestant medicine has been suggested. Often this medicine is combined in the same tablet with an antihistamine or expectorant. This type of medicine is helpful in treating a bad cold or sinus condition, as well as in treatment of the nasal congestion of hay fever. It is not of much benefit for lung infections. Decongestant medicines are related to stimulants. They can cause an increase in blood pressure and heart rate. Persons with heart disease and high blood pressure should not take decongestants without discussing this with the physician. If you develop palpitations, chest pain, headache, or tremors, stop the medicine and consult your physician. COUGH-SUPPRESSANT & EXPECTORANT MEDICATION: You are to use a cough medication as needed for relief of symptoms. This medicine is a combination of an expectorant (to make the mucous thinner and more easily "coughed up") and a cough suppressant (to reduce the frequency of coughing). The cough-suppressant medicine is related to narcotics. You may experience mild nausea and sleepiness. Some patients who are very sensitive to narcotics may have stomach pain from this medicine. Taking the medicine with food reduces these side effects. Do not drive or work with machinery until you know how this medicine affects you. The expectorant should have no side effects. Iodine-containing expectorants (such as organidin) should not be taken by persons with active thyroid disease unless approved by your doctor. Call the doctor if you develop shortness of breath, hives, rash, itching, lightheadedness, or severe nausea and vomiting. INHALED BRONCHODILATORS: You have received a treatment of and/or prescription for an inhaled bronchodilator -- a medication which stimulates the airways in the lung to dilate. This improves the flow of air in asthma, bronchitis, and emphysema. These medicines have some similarity to adrenaline, and can cause similar side effects: shakiness, racing heart, and a sense of nervousness. These side effects decrease with time. Contact your doctor if these side effects are severe. Do not over-use the medicine. Too-frequent use of the inhaler may make it ineffective. Call your doctor if the inhaler is not controlling your symptoms at the prescribed doses. STEROID MEDICATION: You have been given an injection of or oral medicine of the cortisone/ steroid class. This medication is used to control inflammation or allergy. Mahendra t is usually only given for a short period of time, until the acute process subsides. There are usually no side effects from short-term use of cortisone-like medications. Some persons feel an increased sense of well-being and are not sleepy at bedtime. Long-term use of cortisone medications is best avoided, unless required for a severe condition. If your condition does not remit, or relapses after the course of corticosteroid medication, you should consult your physician. USE OF ACETAMINOPHEN (Tylenol): Acetaminophen may be taken for pain relief or fever control. It's much safer than aspirin, offering a wider range of "safe" dosages. It is safe during . Some brand names are Tylenol, Panadol, Datril, Anacin 3, Tempra, and Liquiprin. Acetaminophen can be repeated every four hours. The following are maximum recommended dosages: >89 pounds or adults 650 mg to 900 mg Acetaminophen can be repeated every four hours. Maximum dose not to exceed 4000 mg a day. Claritin 10 mg, Sudafed 30 mg, Mucinex 600 mg will all help you with your symptoms. These are gwll-sfq-lbaacon medications. They help you to reduce the drainage in your nose which is going down your throat causing her sore throat and causing her to cough. You could also gargle with warm salt and soda solution. Salt and soda solution 1 quart of water 1 tablespoon of salt 1 teaspoon of baking soda Mixed 3 ingredients together and boil for 1 minute Placed in a covered quart jar Use 1/2 ounce of cold solution to gargle 3 times a day FOLLOW-UP CARE: If you have been referred to a physician for follow-up care, call the physician s office for an appointment as you were instructed or within the next two days. If you experience worsening or a significant change in your symptoms, notify the physician immediately or return to the Emergency Department at any time for re-evaluation. Prescriptions: Albuterol Sulfate [Proair HFA Inhalation Aerosol 8.5 gm MDI] 2 puff IH Q4H PRN # 1 mdi PRN Reason:
--- NOTE | 2018-10-23 10:46 | RADIOLOGY REPORT (SQ) ---
EXAM DESCRIPTION: CHEST 2 VIEWS COMPLETED DATE/TIME: 10/23/2018 10:35 am REASON FOR STUDY: cough congestion fever COMPARISON: Two-view chest 12/17/2017 EXAM PARAMETERS: NUMBER OF VIEWS: two views TECHNIQUE: Digital Frontal and Lateral radiographic views of the chest acquired. RADIATION DOSE: NA LIMITATIONS: none FINDINGS: LUNGS AND PLEURA: No opacities, masses or pneumothorax. No pleural effusion. MEDIASTINUM AND HILAR STRUCTURES: No masses or contour abnormalities. HEART AND VASCULAR STRUCTURES: Heart normal size. No evidence for failure. BONES: No acute findings. HARDWARE: None in the chest. OTHER: No other significant finding. IMPRESSION: NO ACUTE RADIOGRAPHIC FINDING IN THE CHEST. TECHNICAL DOCUMENTATION: JOB ID: [id number] [employer]- All Rights Reserved Reading location - IP/workstation name: [email or web address]
[2018-10-23] MEDS ORDERED: DEXAMETHASONE SOD PHOS INJ 10 MG/1 ML VIAL IM ONE (11:16)
[2018-10-23 11:27] VITALS: BP 114/73
== END 2018-10-23 11:27 | disposition home or self-care (01) ==
LOC: ER 09:54
DX: J02.8 Acute pharyngitis due to other specified organisms (principal); B97.89 Other viral agents as the cause of diseases classified elsewhere; R05 Cough; R50.9 Fever, unspecified; R07.81 Pleurodynia; J34.89 Other specified disorders of nose and nasal sinuses; R09.82 Postnasal drip; R06.02 Shortness of breath; J44.9 Chronic obstructive pulmonary disease, unspecified; Z87.01 Personal history of pneumonia (recurrent); Z87.891 Personal history of nicotine dependence
CPT/HCPCS: 99283; 96372; 71046; J1100

== ENCOUNTER 2019-01-04 04:36 | Emergency (ER) | payer SELFPAY ==
[2019-01-04 06:36] LABS: APPEARANCE,URINE CLEAR; BILIRUBIN,URINE NEGATIVE (NEGATIVE); GLUCOSE, URINE NEGATIVE (NEGATIVE); KETONES,URINE TRACE mg/dL (NEGATIVE); LEUKOCYTE ESTERASE,URINE NEGATIVE (NEGATIVE); NITRITE,URINE NEGATIVE (NEGATIVE); PROTEIN,URINE NEGATIVE (NEGATIVE); URINE SPECIFIC GRAVITY 1.026
[2019-01-04 06:37] LABS: COLOR,URINE DARK YELLOW
[2019-01-04] MEDS ORDERED: KETOROLAC TROMETHAMINE INJ/PF 30 MG/1 ML SDV IM ONE (07:12)
--- NOTE | 2019-01-04 07:15 | ER Document Report ---
ED General - General Chief Complaint: Abdominal Pain Stated Complaint: ABDOMINAL PAIN Time Seen by Provider: 01/04/19 07:06 Primary Care Provider: [facility] [Provider Group] - Follow up as needed TRAVEL OUTSIDE OF THE [place] IN LAST 30 DAYS: No - HPI Notes: Patient is a 33-year-old female with no significant past medical history who presents emergency department complaining of lower pelvic/abdominal pain has been constant over the last couple days. Patient states that she has started bleeding again which is not normal of her menstrual cycle. The pain does not radiate. Movement makes the pain worse. She is otherwise able to eat and drink without difficulty. She is urinating normally and having normal she does not have any other vaginal discharge or odor that she is aware. Denies any headache, fever, neck pain, URI, sore throat, chest pain, palpitations, syncope, cough, shortness of breath, wheeze, dyspnea, nausea/vomiting/diarrhea, urinary retention, dysuria, hematuria, or rash. - Related Data Allergies/Adverse Reactions: iodine [Iodine] Allergy (Severe, Verified 08/23/18 13:35) swelling shellfish derived Allergy (Verified 08/23/18 13:35) Past Medical History - Social History Smoking Status: Unknown if Ever Smoked Family History: CAD, Thyroid Disfunction, Other - Asthma, COPD Patient has suicidal ideation: No Patient has homicidal ideation: No - Past Medical History Cardiac Medical History: Pulmonary Medical History: Reports: Hx Asthma - CHILDHOOD, Hx Bronchitis, Hx COPD, Hx Pneumonia Neurological Medical History: Reports: Hx Migraine, Hx Seizures Endocrine Medical History: Reports: Hx Hyperthyroidism Renal/ Medical History: Reports: Hx Kidney Stones, Hx Ovarian Cysts. Denies: Hx Peritoneal Dialysis GI Medical History: Reports: Hx Gastroesophageal Reflux Disease, Hx Hiatal Hernia Musculoskeletal Medical History: Reports Hx Musculoskeletal Deformity, Reports Hx Musculoskeletal Trauma Skin Medical History: Psychiatric Medical History: Reports: Hx Anxiety, Hx Attention Deficit Hyperactivity Disorder, Hx Bipolar Disorder, Hx Depression Traumatic Medical History: Reports: Hx Fractures - Facial fractures Past Surgical History: Reports: Hx Dilation and Curettage, Hx Gynecologic Surgery - CERVICAL BIOPSY/TIGHTENING OF CERVIX, Hx Orthopedic Surgery - FACIAL PLATES - Immunizations Immunizations up to date: Yes Hx Diphtheria, Pertussis, Tetanus Vaccination: Yes Review of Systems - Review of Systems -: Yes All other systems reviewed and negative Physical Exam - Vital signs Vitals: Temp Pulse Resp BP Pulse Ox 98.4 F 112 H 18 105/75 98 01/04/19 04:45 01/04/19 04:45 01/04/19 04:45 01/04/19 04:45 01/04/19 04:45 - Notes Notes: PHYSICAL EXAMINATION: accompanied by female nurseAna for pelvic as well GENERAL: Well-appearing, well-nourished and in no acute distress. LUNGS: Breath sounds clear to auscultation bilaterally and equal. No wheezes rales or rhonchi. HEART: Regular rate and rhythm without murmurs ABDOMEN: Soft, nondistended abdomen. No guarding, no rebound. Normal bowel sounds present. CVA tenderness negative bilaterally. + tenderness to the Rt lower pelvic and to midline. No tenderness at McBurney point. Ertana neg. Female : No inguinal adenopathy. External genitalia without erythema, lesions, or masses. Vaginal mucosa pink without discharge. Cervix parous, pink, and without discharge. Uterus is smooth. No adnexal tenderness. No CMT. Musculoskeletal: FROM to passive/active. Strength 5+/5. Extremities: No cyanosis/clubbing/edema b/l. Peripheral pulses 2+. Capillary refill less than 3 seconds. NEUROLOGICAL: Cranial nerves grossly intact. Normal speech, normal gait. PSYCH: Normal mood, normal affect. SKIN: Warm, Dry, normal turgor, no rashes or lesions noted. Course - Re-evaluation Re-evalutation: 01/04/19 10:02 Patient is an afebrile, well-hydrated, 33-year-old female who presents with rt pelvic pain and ovarian cyst. Vitals are acceptable without any significant tachycardia, tachypnea, or hypoxia. PE is otherwise unremarkable. lab work acceptable. Urinalysis and hCG are unremarkable for any acute pathology. See wet mount results. Chlam/gonorrhea tests are pending. Patient declined wanting any treatment for chlamydia/gonorrhea at this time and is aware that she may have the return if any test comes back positive. Patient is nontoxic-appearing is tolerating p.o. without any difficulties. See TVUS. No other labs or imaging warranted at this time based on H&P. Low suspicion/risk for acute appendicitis, bowel obstruction, acute cholecystitis, acute cholangitis, perforated diverticulitis, incarcerated hernia, pancreatitis, perforated ulcer, peritonitis, sepsis, pelvic inflammatory disease, ectopic , tubo- ovarian abscess, ovarian torsion, or other systemic emergent condition at this time. Patient is aware that her condition can change from initial presentation and she needs to monitor symptoms closely and seek medical attention if any acute changes. I will send her home with prescription for naproxen. Conservative measures otherwise for symptoms. Recheck with your PCM/OBGYN in 3- 5 days. Return to the ED with any worsening/concerning symptoms otherwise as r lisandro in discharge. Patient is in agreement. - Vital Signs Vital signs: Temp Pulse Resp BP Pulse Ox 98.4 F 112 H 18 105/75 98 01/04/19 04:45 01/04/19 04:45 01/04/19 04:45 01/04/19 04:45 01/04/19 04:45 - Laboratory Result Diagrams: 01/04/19 07:42 01/04/19 07:42 Laboratory results interpreted by me: 01/04/19 01/04/19 05:43 07:42 WBC 14.8 H Seg Neutrophils % 84.5 H Lymphocytes % 9.5 L Absolute Neutrophils 12.5 H Urine Ketones TRACE H Urine Urobilinogen 4.0 H Procedures - Pelvic Exam Pelvic exam Time completed: 09:12 Cultures obtained: Yes Wet prep obtained: Yes Bimanual exam performed: Yes - negative Witnessed by: elly browningelement burner - Discharge Clinical Impression: Pelvic pain Ovarian cyst Qualifiers: Laterality: right Qualified Code(s): N83.201 - Unspecified ovarian cyst, right side Condition: Stable Disposition: HOME, SELF-CARE Additional Instructions: Maintain fluid intake Proper hygienic technique Keep the skin clean Safe sexual practices with condoms everytime Tylenol/ibuprofen as needed Check in with the health department this week for further testing if warranted Your chlamydia/Chu tests are pending and you will be notified if positive results; you may call in 1 day for the results as well F/u with your PCM/OBGYN in 3-5 days for a recheck Return to the ED with any development of GAUTHIER/fever, trouble with vision, eye redness, worsening pain, urethral discharge, urinary retention, blood in the u rine, flank pain, abdominal pain, n/v, Chest Pain, shortness of breath, joint pains, trouble breathing, or any other worsening/concerning symptoms as needed otherwise. Prescriptions: Naproxen 500 mg PO BID #20 tablet Referrals: [facility] [Provider Group] - Follow up as needed
[2019-01-04 07:53] LABS: ABSOLUTE EOSINOPHILS # (AUTO) 0.1 10^3/uL (0.0-0.6); ABSOLUTE LYMPHOCYTES (AUTO) 1.4 10^3/uL (0.5-4.7); ABSOLUTE MONOCYTES (AUTO) 0.7 10^3/uL (0.1-1.4); ABSOLUTE NEUT (AUTO) 12.5 10^3/uL (1.7-8.2); BASOPHILS % (AUTO) 0.3 % (0-2); EOSINOPHILS % (AUTO) 0.7 % (0-6); HEMATOCRIT 36.6 % (36.0-47.0); HEMOGLOBIN 12.7 g/dL (12.0-15.5); LYMPHOCYTES % (AUTO) 9.5 % (13-45); MEAN CORPUSCULAR HEMOGLOBIN 30.1 pg (27.0-33.4); MEAN CORPUSCULAR HGB CONC 34.7 g/dL (32.0-36.0); MEAN CORPUSCULAR VOLUME 87 fl (80-97); PLATELET COUNT 312 10^3/uL (150-450); RED BLOOD COUNT 4.21 10^6/uL (3.72-5.28); RED CELL DISTRIBUTION WIDTH 13.3 % (11.5-14.0); SEGMENTED NEUTROPHILS % (AUTO) 84.5 % (42-78); TOTAL CELLS COUNTED % (AUTO) 100 %; WHITE BLOOD COUNT 14.8 10^3/uL (4.0-10.5)
[2019-01-04 08:09] LABS: ALANINE AMINOTRANSFERASE 12 U/L (9-52); ALBUMIN 4.2 g/dL (3.5-5.0); ALKALINE PHOSPHATASE 67 U/L (38-126); ANION GAP 10 (5-19); ASPARTATE AMINO TRANSFERASE 16 U/L (14-36); BILIRUBIN,DIRECT 0.2 mg/dL (0.0-0.4); BILIRUBIN,TOTAL 0.9 mg/dL (0.2-1.3); BLOOD UREA NITROGEN 14 mg/dL (7-20); CALCIUM 9.5 mg/dL (8.4-10.2); CARBON DIOXIDE 26 mmol/L (22-30); CHLORIDE 103 mmol/L (98-107); GLUCOSE 100 mg/dL (75-110); POTASSIUM 4.6 mmol/L (3.6-5.0); SODIUM 139.3 mmol/L (137-145); TOTAL PROTEIN 7.1 g/dL (6.3-8.2)
--- NOTE | 2019-01-04 08:52 | RADIOLOGY REPORT (SQ) ---
EXAM DESCRIPTION: U/S NON OB PEL TV W/DOPPLER COMPLETED DATE/TIME: 01/04/2019 8:28 am REASON FOR STUDY: pelvic pain COMPARISON: 05/22/2015 TECHNIQUE: Dynamic and static grayscale images acquired of the pelvis via transvaginal approach and recorded on PACS. Additional selected color Doppler and spectral images recorded. LIMITATIONS: None. FINDINGS: UTERUS: Contour normal. No mass. ENDOMETRIAL STRIPE: No focal or generalized thickening. No masses. CERVIX: No nabothian cysts. RIGHT OVARY AND DOPPLER: Normal size. No worrisome masses. There is a heterogeneous hypodense rounde d lesion measuring 1.3 x 1.3 x 1.0 cm. Normal arterial vascular flow without evidence for torsion. LEFT OVARY AND DOPPLER: Normal size. No worrisome masses. Normal arterial vascular flow without evide nce for torsion. FREE FLUID: None noted. OTHER: No other significant finding. MEASUREMENTS: UTERUS: 7.1 x 5.4 x 3.5 cm ENDOMETRIAL STRIPE: 5 mm RIGHT OVARY: 3.3 x 2.4 x 2.1 cm. LEFT OVARY: 3.7 x 2.6 x 2.1 cm. IMPRESSION: There is a heterogeneous hypodense rounded lesion measuring 1.3 cm in the right ovary, l ikely a hemorrhagic cyst or follicle. Recommend follow-up ultrasound in 6 weeks to ensure resolution . Otherwise unremarkable ultrasound examination of the pelvis. No additional findings to explain ac [place] pain. Consider CT or MRI to further evaluate unexplained pain. TECHNICAL DOCUMENTATION: JOB ID: [id number] [employer]- All Rights Reserved Reading location - IP/workstation name: [email or web address]
[2019-01-04] MEDS ORDERED: MORPHINE SULFATE 10 MG/ML INJ IV ONE (09:12)
[2019-01-04 09:54] LABS: BACTERIA (WET MOUNT) 3+ BACTERIA SEEN; RBCS (WET MOUNT) FEW RBCS SEEN; T.VAGINALIS (WET MOUNT) NO TRICHOMONAS SEEN; WBCS (WET MOUNT) 3+ WBCS SEEN; YEAST (WET MOUNT) NO YEAST SEEN
[2019-01-04 10:58] VITALS: BP 101/68
[2019-01-04 11:31] LABS: GON PCR DETECTED (NOT DETECT)
[2019-01-04 11:32] LABS: CHLAM PCR NOT DETECTED (NOT DETECT)
== END 2019-01-04 10:58 | disposition home or self-care (01) ==
LOC: ER 04:36
DX: N83.201 Unspecified ovarian cyst, right side (principal); R10.2 Pelvic and perineal pain; N93.9 Abnormal uterine and vaginal bleeding, unspecified; Z91.013 Allergy to seafood; J44.9 Chronic obstructive pulmonary disease, unspecified; Z87.442 Personal history of urinary calculi; Z87.19 Personal history of other diseases of the digestive system
CPT/HCPCS: 99284; 96372; 96374; 36415; 87210; 85025; 81025; 80053; 81001; 87491; 87591; 76830; 93976; J1885; J2270

== ENCOUNTER → 2020-03-29 | Outpatient (CLI) | payer SELFPAY ==
--- NOTE | 2020-03-29 14:58 | RADIOLOGY REPORT (SQ) ---
EXAM DESCRIPTION: U/S [id number] TRNABD 1GES W/ODOP IMAGES COMPLETED DATE/TIME: 03/29/2020 2:45 pm REASON FOR STUDY: (Z34.81)ENCOUNTER FOR SUPRVSN OF NORMAL , FIRST TRIMESTER Z34.81 ENCOUNT ER FOR SUPRVSN OF NORMAL , FIRST TRIM COMPARISON: None. TECHNIQUE: Transvaginal static and realtime grayscale images acquired of the pelvis. Additional tori cted spectral and color Doppler images recorded. All images stored on PACs. bHCG: Not applicable. CLINICAL DATES: 9 week 2 day. LIMITATIONS: None. FINDINGS: FETUS: Single Living intrauterine . ULTRASOUND EGA: 9 week 0 day. ULTRASOUND ISELA: 11/01/2020. EFW: Not applicable less than 20 weeks. CRL: 2.09 cm. FHR: 168 beats per minute. SURVEY: No visualized anomalies. AMNIOTIC FLUID: Adequate amount. PLACENTA: Not yet developed due to early gestation. SUBCHORIONIC BLEED: No. SIZE OF BLEED: Not applicable. UTERUS: No masses. No anomalies. CERVICAL LENGTH: 2.8 cm. Closed. RIGHT ADNEXA: Normal ovary with normal vascular flow. No adnexal free fluid. No adnexal masses. LEFT ADNEXA: Normal ovary with normal vascular flow. No adnexal free fluid. No adnexal masses. FREE FLUID: None. OTHER: No other significant finding. IMPRESSION: LIVING INTRAUTERINE . EGA 9 WEEK 0 DAY. Trimester of : First trimester - 0 to 13 weeks. TECHNICAL DOCUMENTATION: JOB ID: [id number] 2010 [employer]- All Rights Reserved Reading location - IP/workstation name: [email or web address]
== END ==
LOC: RAD 13:56
PROVIDERS: ATTEND Midwife
DX: Z34.81 Encounter for supervision of other normal pregnancy, first trimester (principal); Z3A.09 9 weeks gestation of pregnancy
CPT/HCPCS: 76801

== ENCOUNTER 2020-04-05 20:19 | Emergency (ER) | payer SELFPAY ==
[2020-04-05] MEDS ORDERED: METOCLOPRAMIDE HCL 10 MG TABLET PO ONE (21:44)
[2020-04-05] MEDS ORDERED: NORMAL SALINE 1000 ML 1,000 ML IV ONE (21:44)
--- NOTE | 2020-04-05 21:45 | ER Document Report ---
ED Medical Screen (RME) - General Chief Complaint: Vomiting Stated Complaint: VOMITING Time Seen by Provider: 04/05/20 21:40 Primary Care Provider: JOSE MENDEZ [Primary Care Provider] - Follow up as needed Notes: 35-year-old female G6, P5 at 10 weeks gestation by last menstrual period by first trimester ultrasound, chief complaint of persistent vomiting for the past 2 days. She states she still feels nauseated and dehydrated, she denies abdominal pain, vaginal bleeding, fever, chest pain, shortness of breath, passing out. She is not on any nausea medications. TRAVEL OUTSIDE OF THE [place] IN LAST 30 DAYS: No - Related Data Allergies/Adverse Reactions: iodine [Iodine] Allergy (Severe, Verified 08/23/18 13:35) swelling shellfish derived Allergy (Verified 08/23/18 13:35) Past Medical History - Past Medical History Cardiac Medical History: Pulmonary Medical History: Reports: Hx Asthma - CHILDHOOD, Hx Bronchitis, Hx COPD, Hx Pneumonia Neurological Medical History: Reports: Hx Migraine, Hx Seizures Endocrine Medical History: Reports: Hx Hyperthyroidism Renal/ Medical History: Reports: Hx Kidney Stones, Hx Ovarian Cysts. Denies: Hx Peritoneal Dialysis GI Medical History: Reports: Hx Gastroesophageal Reflux Disease, Hx Hiatal Hernia Musculoskeltal Medical History: Reports Hx Musculoskeletal Deformity, Reports Hx Musculoskeletal Trauma Skin Medical History: Psychiatric Medical History: Reports: Hx Anxiety, Hx Attention Deficit Hyperactivity Disorder, Hx Bipolar Disorder, Hx Depression Traumatic Medical History: Reports: Hx Fractures - Facial fractures Past Surgical History: Reports: Hx Dilation and Curettage, Hx Gynecologic Surgery - CERVICAL BIOPSY/TIGHTENING OF CERVIX, Hx Orthopedic Surgery - FACIAL PLATES - Immunizations Immunizations up to date: Yes Hx Diphtheria, Pertussis, Tetanus Vaccination: Yes Physical Exam - Vital signs Vitals: Temp Pulse Resp BP Pulse Ox 97.9 F 73 18 96/67 L 97 04/05/20 20:27 04/05/20 20:27 04/05/20 20:27 04/05/20 20:27 04/05/20 20:27 - Abdominal Inspection: Normal Tenderness: Nontender Course - Re-evaluation Re-evalutation: I have greeted and performed a rapid initial assessment of this patient. A comprehensive ED assessment and evaluation of the patient, analysis of test results and completion of the medical decision making process will be conducted by additional ED providers. - Vital Signs Vital signs: Temp Pulse Resp BP Pulse Ox 97.9 F 73 18 96/67 L 97 04/05/20 21:42 04/05/20 20:27 04/05/20 20:27 04/05/20 20:27 04/05/20 20:27 Doctor's Discharge - Discharge Referrals: LOCALMD,NO [Primary Care Provider] - Follow up as needed
[2020-04-05] MEDS ORDERED: METOCLOPRAMIDE HCL INJ/PF 10 MG/2 ML SDV IV ONE (22:00)
--- NOTE | 2020-04-05 23:26 | ER Document Report ---
Entered by NORI WALKER SCRIBE 04/05/20 2004 Acting as scribe for:TOSHIA MENENDEZ DO ED GI/ - General Chief Complaint: Vomiting Stated Complaint: VOMITING Time Seen by Provider: 04/05/20 21:40 Notes: This 35 year old female patient, , currently x10 weeks gestation presents to the ED today with complaints of nausea and vomiting for the past x3 days. Patient states that her due date is 10/30/2020 and that [facility]. Denies fever, cough, dysuria, hem aturia, vaginal bleeding, or abdominal pain. She notes that this is the first time that she has had any morning sickness with her pregnancies. TRAVEL OUTSIDE OF THE [place] IN LAST 30 DAYS: No - Related Data Allergies/Adverse Reactions: iodine [Iodine] Allergy (Severe, Verified 08/23/18 13:35) swelling shellfish derived Allergy (Verified 08/23/18 13:35) Past Medical History - General Information source: Patient, [facility] Records - Social History Smoking Status: Current Every Day Smoker Cigarette use (# per day): Yes Chew tobacco use (# tins/day): No Smoking Education Provided: No Lives with: Family Family History: Reviewed & Not Pertinent, CAD, Thyroid Disfunction, Other - Asthma, COPD Patient has suicidal ideation: No Patient has homicidal ideation: No - Past Medical History Cardiac Medical History: Pulmonary Medical History: Reports: Hx Asthma - CHILDHOOD, Hx Bronchitis, Hx COPD, Hx Pneumonia Neurological Medical History: Reports: Hx Migraine, Hx Seizures Endocrine Medical History: Reports: Hx Hyperthyroidism Renal/ Medical History: Reports: Hx Kidney Stones, Hx Ovarian Cysts GI Medical History: Reports: Hx Gastroesophageal Reflux Disease, Hx Hiatal Hernia Musculoskeletal Medical History: Reports Hx Musculoskeletal Deformity, Reports Hx Musculoskeletal Trauma Skin Medical History: Psychiatric Medical History: Reports: Hx Anxiety, Hx Attention Deficit Hyperactivity Disorder, Hx Bipolar Disorder, Hx Depression Traumatic Medical History: Reports: Hx Fractures - Facial fractures Past Surgical History: Reports: Hx Dilation and Curettage, Hx Gynecologic Surgery - CERVICAL BIOPSY/TIGHTENING OF CERVIX, Hx Orthopedic Surgery - FACIAL PLATES - Immunizations Immunizations up to date: Yes Hx Diphtheria, Pertussis, Tetanus Vaccination: Yes Review of Systems - Review of Systems Constitutional: See HPI. denies: Fever EENT: No symptoms reported Cardiovascular: No symptoms reported Respiratory: See HPI. denies: Cough Gastrointestinal: See HPI, Nausea, Vomiting. denies: Abdominal pain Genitourinary: See HPI. denies: Dysuria, Hematuria Female Genitourinary: See HPI, - x10 weeks. denies: Vaginal bleeding Musculoskeletal: No symptoms reported Skin: No symptoms reported Hematologic/Lymphatic: No symptoms reported Neurological/Psychological: No symptoms reported -: Yes All other systems reviewed and negative Physical Exam - Vital signs Vitals: Temp Pulse Resp BP Pulse Ox 97.9 F 73 18 96/67 L 97 04/05/20 20:27 04/05/20 20:27 04/05/20 20:27 04/05/20 20:27 04/05/20 20:27 - General General appearance: Alert - HEENT Head: Normocephalic, Atraumatic Eyes: Normal Pupils: PERRL Mouth/Lips: Caries, Other - Poor dentition Mucous membranes: Dry - Respiratory Respiratory status: No respiratory distress Chest status: Nontender Breath sounds: Normal Chest palpation: Normal - Cardiovascular Rhythm: Regular Heart sounds: Normal auscultation Murmur: No - Abdominal Inspection: Normal Distension: No distension Bowel sounds: Normal Tenderness: Nontender Organomegaly: No organomegaly - Back Back: Normal, Nontender - Extremities General upper extremity: Normal inspection General lower extremity: Normal inspection - Neurological Neuro grossly intact: Yes Orientation: AAOx4 [place] Coma Scale Eye Opening: Spontaneous Yash Coma Scale Verbal: Oriented Yash Coma Scale Motor: Obeys Commands Yash Coma Scale Total: 15 - Psychological Associated symptoms: Normal affect, Normal mood - Skin Skin Temperature: Warm Skin Moisture: Dry Skin Color: Normal Notes: Porous skin turgor Course - Re-evaluation Re-evalutation: 04/06/20 03:16 MDM 35 year old female presents with hyperemesis over the past few days. Moderately dry here. 2L IVf and tolerates IVF here. [facility] for this, her 6th . She tells me presently nausea is better. Will have her follow up closely. No definate UTI. Will culture urine. - Vital Signs Vital signs: Temp Pulse Resp BP Pulse Ox 98.5 F 72 15 92/47 L 100 04/06/20 01:42 04/06/20 01:42 04/06/20 01:42 04/06/20 01:42 04/06/20 01:42 - Laboratory Result Diagrams: 04/06/20 00:10 04/06/20 00:10 Laboratory results interpreted by me: 04/06/20 04/06/20 04/06/20 00:10 00:10 02:35 WBC 10.8 H Hct 35.8 L RDW 15.1 H Sodium 130.3 L Carbon Dioxide 19 L Creatinine 0.47 L Urine Protein 30 H Urine Ketones 80 H Ur Leukocyte Esterase LARGE H Urine HCG, Qual POSITIVE H Discharge - Discharge Clinical Impression: Dehydration, 10 weeks gestation of , Hyperemesis gravidarum Condition: Good Disposition: HOME, SELF-CARE Instructions: Antinausea Medication ([facility]), Intravenous (IV) Fluids ([facility]), Reglan ([facility]), Vomiting ([facility]) Additional Instructions: Rest, fluids, medicines as directed. Please return here for any problems or any concerns. Prescriptions: Promethazine HCl 12.5 mg TX TID #6 supp.rect Ondansetron [Zofran Odt 4 mg Tablet] 1 - 2 tab PO Q4H PRN #15 tab.rapdis PRN Reason: For Nausea/Vomiting I personally performed the services described in the documentation, reviewed and edited the documentation which was dictated to the scribe in my presence, and it accurately records my words and actions.
[2020-04-06 00:25] LABS: ABSOLUTE BASOPHILS # (AUTO) 0.1 10^3/uL (0.0-0.2); ABSOLUTE EOSINOPHILS # (AUTO) 0.1 10^3/uL (0.0-0.6); ABSOLUTE LYMPHOCYTES (AUTO) 2.1 10^3/uL (0.5-4.7); ABSOLUTE MONOCYTES (AUTO) 0.8 10^3/uL (0.1-1.4); ABSOLUTE NEUT (AUTO) 7.6 10^3/uL (1.7-8.2); BASOPHILS % (AUTO) 0.6 % (0-2); EOSINOPHILS % (AUTO) 1.3 % (0-6); HEMATOCRIT 35.8 % (36.0-47.0); HEMOGLOBIN 12.6 g/dL (12.0-15.5); LYMPHOCYTES % (AUTO) 19.7 % (13-45); MEAN CORPUSCULAR HEMOGLOBIN 29.7 pg (27.0-33.4); MEAN CORPUSCULAR HGB CONC 35.1 g/dL (32.0-36.0); MEAN CORPUSCULAR VOLUME 85 fl (80-97); MONOCYTES % (AUTO) 7.3 % (3-13); PLATELET COUNT 361 10^3/uL (150-450); RED BLOOD COUNT 4.24 10^6/uL (3.72-5.28); RED CELL DISTRIBUTION WIDTH 15.1 % (11.5-14.0); SEGMENTED NEUTROPHILS % (AUTO) 71.1 % (42-78); TOTAL CELLS COUNTED % (AUTO) 100 %; WHITE BLOOD COUNT 10.8 10^3/uL (4.0-10.5)
[2020-04-06 00:30] LABS: ALBUMIN 4.3 g/dL (3.5-5.0); ALKALINE PHOSPHATASE 50 U/L (38-126); ANION GAP 11 (5-19); ASPARTATE AMINO TRANSFERASE 20 U/L (14-36); BLOOD UREA NITROGEN 16 mg/dL (7-20); CALCIUM 9.5 mg/dL (8.4-10.2); CARBON DIOXIDE 19 mmol/L (22-30); CHLORIDE 100 mmol/L (98-107); GLUCOSE 86 mg/dL (75-110); POTASSIUM 4.1 mmol/L (3.6-5.0); TOTAL PROTEIN 7.1 g/dL (6.3-8.2)
[2020-04-06] MEDS ORDERED: NORMAL SALINE 1000 ML 1,000 ML IV ONE (01:09)
[2020-04-06 01:43] VITALS: BP 92/47
[2020-04-06 03:00] LABS: APPEARANCE,URINE SLIGHTLY-CLOUDY; BILIRUBIN,URINE NEGATIVE (NEGATIVE); COLOR,URINE YELLOW; GLUCOSE, URINE NEGATIVE (NEGATIVE); KETONES,URINE 80 mg/dL (NEGATIVE); LEUKOCYTE ESTERASE,URINE LARGE (NEGATIVE); NITRITE,URINE NEGATIVE (NEGATIVE); PROTEIN,URINE 30 mg/dL (NEGATIVE); URINE SPECIFIC GRAVITY 1.027; UROBILINOGEN,URINE NEGATIVE mg/dL (<2.0)
== END 2020-04-06 03:36 | disposition home or self-care (01) ==
LOC: ER 20:19
DX: O21.1 Hyperemesis gravidarum with metabolic disturbance (principal); O99.331 Smoking (tobacco) complicating pregnancy, first trimester; F17.210 Nicotine dependence, cigarettes, uncomplicated; O99.511 Diseases of the respiratory system complicating pregnancy, first trimester; J44.9 Chronic obstructive pulmonary disease, unspecified; O99.611 Diseases of the digestive system complicating pregnancy, first trimester; K02.9 Dental caries, unspecified; Z3A.10 10 weeks gestation of pregnancy; Z91.013 Allergy to seafood
CPT/HCPCS: 99284; 96361; 96374; 36415; 87086; 83690; 85025; 81025; 80053; 81001; J2765; J7030 ×2

== ENCOUNTER 2020-05-29 11:16 | Day surgery (SDC) | payer MEDICAID ==
[2020-05-23 10:33] LABS: HEMATOCRIT 34.6 % (36.0-47.0); HEMOGLOBIN 11.9 g/dL (12.0-15.5); MEAN CORPUSCULAR HGB CONC 34.2 g/dL (32.0-36.0); MEAN CORPUSCULAR VOLUME 88 fl (80-97); PLATELET COUNT 328 10^3/uL (150-450); RED BLOOD COUNT 3.95 10^6/uL (3.72-5.28); RED CELL DISTRIBUTION WIDTH 15.5 % (11.5-14.0); WHITE BLOOD COUNT 9.2 10^3/uL (4.0-10.5)
[2020-05-23 10:40] LABS: APPEARANCE,URINE SLIGHTLY-CLOUDY; BILIRUBIN,URINE NEGATIVE (NEGATIVE); CALCIUM OXALATE CRYSTALS,URINE FEW /HPF; COLOR,URINE YELLOW; GLUCOSE, URINE NEGATIVE (NEGATIVE); KETONES,URINE NEGATIVE (NEGATIVE); LEUKOCYTE ESTERASE,URINE SMALL (NEGATIVE); NITRITE,URINE NEGATIVE (NEGATIVE); PROTEIN,URINE NEGATIVE (NEGATIVE); URINE SPECIFIC GRAVITY 1.019
[~2020-05-29 11:16] MED LIST: LACTATED RINGERS 1000 ML IV PRN; LIDOCAINE 0.5% INJ-PF (5 MG/ML) 50 ML SDV SUBCUT PRN; RINGERS SOLUTION,LACTATED 1,000 ML IV PRN
[2020-05-29] MEDS ORDERED: METRONIDAZOLE 500 MG/NS RTU 500 MG/100 ML RTUPB IV PRN (11:25)
[2020-05-29] MEDS ORDERED: PROPOFOL INJ 200 MG/20 ML VIAL IV ONE (12:36)
[2020-05-29] MEDS ORDERED: MIDAZOLAM 2 MG/2 ML INJ ONE (12:36)
[2020-05-29] MEDS ORDERED: FENTANYL CITRATE INJ/PF 100 MCG/2 ML AMPUL ONE (12:36)
[2020-05-29] MEDS ORDERED: METRONIDAZOLE 500 MG/NS RTU 500 MG/100 ML RTUPB IV ONE (12:47)
[2020-05-29] MEDS ORDERED: FENTANYL CITRATE INJ/PF 100 MCG/2 ML AMPUL IV PRN ×3 (13:22)
[2020-05-29] MEDS ORDERED: MEPERIDINE HCL/PF INJ 25 MG/1 ML DISP.SYRIN IV PRN (13:22)
[2020-05-29] MEDS ORDERED: ONDANSETRON HCL INJ/PF 4 MG/2 ML SDV IV PRN (13:22)
--- NOTE | 2020-05-29 13:44 | Operative Report ---
Operative Report DATE OF SURGERY: 05/29/20 PREOPERATIVE DIAGNOSIS: Incompete cervix. 17+ weeks IUP POSTOPERATIVE DIAGNOSIS: Incompetent cervix. 17+ weeks IUP OPERATION: Boyle cerclage SURGEON: RAJEEV CROWELL ANESTHESIA: Spinal TISSUE REMOVED OR ALTERED: None COMPLICATIONS: None ESTIMATED BLOOD LOSS: <5 ml INTRAOPERATIVE FINDINGS: Short cervix, with no findings grossly of lesion or cancer. PROCEDURE: After discussion of risks benefits and alternatives of the procedure and obtaining informed consent in the office and reviewed today ,the patient was taken to the operating room where a spinal anesthetic was administered and found to be adequate. She was then placed on the OR table in the dorsolithotomy position and prepped and draped in the usual sterile fashion, after sterile water with peroxide was used for prep since the patient has a severe allergy to Betadine and iodine. Metronidazole 500 mg was given IV prior to the procedure. The bladder was emptied via in and out catheterization. Patient was placed in Trendelenburg position. A weighted speculum was placed in the posterior vaginal vault and a Orange was placed anteriorly to visualize the cervix. The cervix appeared mildly shortened. Using #1 Prolene suture a Boyle cerclage was placed in the standard fashion starting anteriorly at the 10 o'clock position. The stitch was placed on traction and secured with several knots. The suture was cut to approximately 2 to 3 cm in length. Good placement was noted and it was irrigated copiously with normal saline suture was assessed and no bleeding was noted all needle sponge and lap counts were correct x2. Patient was taken out of Trendelenburg position and will proceed to recovery room in stable condition. heart tones after the procedure were 150 bpm.
--- NOTE | 2020-05-29 13:46 | Discharge Summary ---
Discharge Summary (SDC) - Discharge Final Diagnosis: Incompetent cervix, IUP at 17+ weeks EGA Date of Surgery: 05/29/20 Discharge Date: 05/29/20 Condition: Stable Treatment or Instructions: Pelvic rest, no tub baths-but may shower as desired. Call for fever, chills, gush of fluid or excessive vaginal bleeding Prescriptions: Acetaminophen 1,000 mg PO Q6 PRN 10 Days #60 tablet PRN Reason: Referrals: YONAS LIMON MD [Primary Care Provider] - Respiratory Treatments at Home: Deep Breathing/Coughing Discharge Activity: Activity As Tolerated Home Care Assistance: None Needed Report the Following to Your Physician Immediately: Shortness of Breath, Nausea, Vomiting, Fever over 101 Degrees, Unusual Bleeding, Warmth, Drainage-Foul Smelling, Seizure, IV Site Infection Signs
[2020-05-29] MEDS ORDERED: ACETAMINOPHEN 325 MG TABLET ONE (17:37)
[2020-05-29 17:48] VITALS: BP 103/68
== END 2020-05-29 17:40 | disposition home or self-care (01) ==
LOC: OROUT 11:16
PROVIDERS: ATTEND Obstetrics & Gynecology
DX: O34.32 Maternal care for cervical incompetence, second trimester (principal); O99.212 Obesity complicating pregnancy, second trimester; O09.522 Supervision of elderly multigravida, second trimester; O99.332 Smoking (tobacco) complicating pregnancy, second trimester; O09.212 Supervision of pregnancy with history of pre-term labor, second trimester; Z3A.17 17 weeks gestation of pregnancy; O99.282 Endocrine, nutritional and metabolic diseases complicating pregnancy, second trimester; E07.9 Disorder of thyroid, unspecified; Z87.891 Personal history of nicotine dependence
CPT/HCPCS: 36415; 85027; 87635; 81001; 59320; J3490 ×2; J3010; C9803; 948; J2250; J2704

== ENCOUNTER 2020-08-24 08:17 | Emergency (ER) | payer MEDICAID ==
[2020-08-24 08:24] VITALS: BP 107/65
== END 2020-08-24 09:50 | disposition left against medical advice (07) ==
LOC: ER 08:17
DX: Z53.21 Procedure and treatment not carried out due to patient leaving prior to being seen by health care provider (principal)

== ENCOUNTER 2020-09-10 08:20 | Emergency (ER) | payer MEDICAID ==
--- NOTE | 2020-09-10 09:25 | ER Document Report ---
ED Respiratory Problem - General Chief Complaint: Cough Stated Complaint: COUGH Time Seen by Provider: 09/10/20 09:04 TRAVEL OUTSIDE OF THE [place] IN LAST 30 DAYS: No - HPI Patient complains to provider of: Cough, Short of breath Onset: Last week Duration: Continuous Quality of pain: No pain Context: Hx asthma Cough: Productive Sputum amount: Small Sputum color: Green Sputum consistency: Mucoid Associated symptoms: Cough, Runny nose. denies: Chest pain/discomfort, Chills, Difficulty breathing, Fever, Headache, Sore Throat Notes: Patient is a 35-year-old female with a past medical history of asthma who is 8 months and a G4, P6 who presents with cough. Patient states she has had a productive cough for about 1 week. She states the sputum is green- colored. She also has clear nasal discharge. Patient denies any chest pain. No headaches or sore throat. No fevers or urinary symptoms. No OB complaints. She states she has had bronchitis and pneumonia in the past. Patient denies any positive Covid exposure. No leg swelling. Patient states her nebulizer machine at home is broken. - Related Data Allergies/Adverse Reactions: iodine [Iodine] Allergy (Severe, Verified 09/10/20 08:34) swelling shellfish derived Allergy (Verified 09/10/20 08:34) Home Medications: Past Medical History - General Information source: Patient - Social History Smoking Status: Former Smoker Chew tobacco use (# tins/day): No Frequency of alcohol use: None Drug Abuse: None Family History: Reviewed & Not Pertinent, CAD, Thyroid Disfunction, Other - Asthma, COPD Patient has homicidal ideation: No - Past Medical History Cardiac Medical History: Denies: Hx Coronary Artery Disease, Hx Heart Attack, Hx Hypertension Pulmonary Medical History: Reports: Hx Asthma - CHILDHOOD, Hx COPD Denies: Hx Bronchitis, Hx Pneumonia Neurological Medical History: Reports: Hx Migraine. Denies: Hx Cerebrovascular Accident, Hx Seizures Endocrine Medical History: Reports: Hx Hyperthyroidism Renal/ Medical History: Reports: Hx Kidney Stones, Hx Ovarian Cysts. Denies: Hx Peritoneal Dialysis GI Medical History: Reports: Hx Gastroesophageal Reflux Disease, Hx Hiatal Hernia Musculoskeletal Medical History: Denies Hx Arthritis, Reports Hx Musculoskeletal Deformity, Reports Hx Musculoskeletal Trauma Skin Medical History: Psychiatric Medical History: Reports: Hx Anxiety, Hx Attention Deficit Hyperactivity Disorder, Hx Bipolar Disorder, Hx Depression Traumatic Medical History: Reports: Hx Fractures - Facial fractures Past Surgical History: Reports: Hx Dilation and Curettage, Hx Gynecologic Surgery - CERVICAL BIOPSY/TIGHTENING OF CERVIX, Hx Orthopedic Surgery - FACIAL PLATES - Immunizations Immunizations up to date: Yes Hx Diphtheria, Pertussis, Tetanus Vaccination: Yes Review of Systems - Review of Systems Notes: CONSTITUTIONAL: No fever, fatigue or weight loss. SKIN: No rash. HENT: No congestion, ear pain, or sore throat. Positive for rhinorrhea. EYES: No recent vision problems or eye pain. ENDOCRINE: No thyroid problems. No polyuria or polydipsia. CARDIOVASCULAR: No chest pain or edema. RESPIRATORY: Positive for cough and wheezing. GASTROINTESTINAL: No abdominal pain, nausea, vomiting, bloody stools or diarrhea. GENITOURINARY: No dysuria. MUSCULOSKELETAL: No joint pain or swelling. LYMPHATIC: No swollen glands. NEUROLOGIC: No seizures. No headache, focal weakness or sensory changes. HEMATOLOGIC: No unusual bruising or bleeding. PSYCHIATRIC: No depression or anxiety. Physical Exam - Vital signs Vitals: Temp Pulse Resp BP Pulse Ox 98.4 F 79 20 95/67 L 96 09/10/20 08:24 09/10/20 08:24 09/10/20 08:24 09/10/20 08:24 09/10/20 08:24 Interpretation: Normal - Notes Notes: VITAL SIGNS: Within normal limits. GENERAL: No acute distress, non-toxic appearance. HEAD: Normal with no signs of head trauma. EYES: EOMI, conjunctiva normal, no discharge. EARS: Hearing grossly intact. NOSE: Normal. NECK: Normal range of motion, no tenderness, supple, no lymphadenopathy, No adenopathy, no JVD. CHEST: Wheezing bilaterally. CARDIAC: Regular rate and rhythm. S1 and S2, without murmurs, gallops, or rubs. VASCULAR: No Edema. ABDOMEN: Gravid abdomen. LYMPATHTIC: No lymphadenopathy noted. MUSCULOSKELETAL: Good range of motion of all major joints. Extremities without clubbing, cyanosis or edema. NEUROLOGICAL: Alert and oriented x 3. No focal sensory or strength deficits. Speech normal. Follows commands appropriately. PSYCHIATRIC: Normal Affect, judgement and mood. SKIN: Normal appearance with no rashes or lesions. Course - Re-evaluation Re-evalutation: 09/10/20 09:24 Patient is 8 months . I did discuss the risks of obtaining an x-ray of her chest including radiation to the fetus as well as the benefits. Patient states she would like the x-ray and she understands the risks. 09/10/20 19:15 X-ray does not show any signs of pneumonia. I do suspect bronchitis. She states she feels better after the nebulizer treatment. Patient states that she would like to be discharged. We did obtain a urine which shows some leukocytes. As she is , I will treat and send for culture. I wrote a prescription for an inhaler. Also discussed with NEWSPAPER PHOTOGRAPHER. He stated as long as her heart tones are normal and she can feel the baby kick, she does not need to be monitored upstairs. heart tones were in the 150s. Patient states the baby is very active. She tested for Covid. Patient was given isolation precautions. Patient was given strict return precautions including worsening cough, fever, shortness of breath. She verbalized understanding. She states she will follow-up with her PCP. - Vital Signs Vital signs: Temp Pulse Resp BP Pulse Ox 98.8 F 67 16 96/70 L 96 09/10/20 13:38 09/10/20 12:45 09/10/20 12:45 09/10/20 12:45 09/10/20 12:45 - Laboratory Result Diagrams: 09/10/20 10:15 09/10/20 10:15 Laboratory results interpreted by me: 09/10/20 09/10/20 09/10/20 10:15 10:15 12:49 WBC 14.3 H Lymph % (Auto) 7.5 L Absolute Neuts (auto) 12.7 H Seg Neutrophils % 88.8 H Sodium 135.7 L Carbon Dioxide 21 L BUN 4 L Alkaline Phosphatase 155 H Albumin 3.4 L Urine Protein 100 H Urine Ketones 80 H Urine Blood SMALL H Urine Bilirubin SMALL H Urine Urobilinogen 4.0 H Leukocyte Esterase Rfl SMALL H Discharge - Discharge Clinical Impression: Cough, Third trimester , Bronchitis Urinary tract infection Qualifiers: Urinary tract infection type: site unspecified Hematuria presence: without hematuria Qualified Code(s): N39.0 - Urinary tract infection, site not specified Condition: Stable Disposition: HOME, SELF-CARE Instructions: COVID-19 Guidance for Persons Under Investigation, Bronchitis ([facility]), ([facility]), Urinary Tract Infection ([facility]) Additional Instructions: You have been tested for COVID-19. You must self isolate until you are called with a negative result. Your urine shows suspicion for possible early UTI. We will treat with Keflex. You must follow-up with your NEWSPAPER PHOTOGRAPHER or your family doctor this week. Make sure you are staying hydrated and drinking water. Please return for any fevers, chills, nausea, vomiting, abdominal pain, shortness of breath or worsening symptoms. Prescriptions: Albuterol Sulfate [Albuterol Sulfate Hfa] 2 puff IH Q6H PRN #1 hfa.aer.ad PRN Reason: Cephalexin Monohydrate [Keflex 500 mg Capsule] 500 mg PO BID 7 Days #14 capsule
--- NOTE | 2020-09-10 09:49 | RADIOLOGY REPORT (SQ) ---
EXAM DESCRIPTION: CHEST SINGLE VIEW IMAGES COMPLETED DATE/TIME: 09/10/2020 9:38 am REASON FOR STUDY: cough, wheezing COMPARISON: 10/23/2018 EXAM PARAMETERS: NUMBER OF VIEWS: One view. TECHNIQUE: Single frontal radiographic view of the chest acquired. RADIATION DOSE: NA LIMITATIONS: None. FINDINGS: LUNGS AND PLEURA: No opacities, masses or pneumothorax. No pleural effusion. MEDIASTINUM AND HILAR STRUCTURES: No masses. Contour normal. HEART AND VASCULAR STRUCTURES: Heart normal in size. Normal vasculature. BONES: No acute findings. HARDWARE: None in the chest. OTHER: No other significant finding. IMPRESSION: NO ACUTE RADIOGRAPHIC FINDING IN THE CHEST. TECHNICAL DOCUMENTATION: JOB ID: [id number] 2010 [employer]- All Rights Reserved Reading location - IP/workstation name: [email or web address]
[2020-09-10] MEDS ORDERED: ALBUTEROL SULFATE 0.083% NEB 2.5 MG/3 ML AMPUL NEB ONE (10:07)
[2020-09-10 10:42] LABS: ABSOLUTE LYMPHOCYTES (AUTO) 1.1 10^3/uL (0.5-4.7); ABSOLUTE MONOCYTES (AUTO) 0.5 10^3/uL (0.1-1.4); ABSOLUTE NEUT (AUTO) 12.7 10^3/uL (1.7-8.2); BASOPHILS % (AUTO) 0.1 % (0-2); EOSINOPHILS % (AUTO) 0.1 % (0-6); HEMATOCRIT 36.2 % (36.0-47.0); HEMOGLOBIN 12.4 g/dL (12.0-15.5); LYMPHOCYTES % (AUTO) 7.5 % (13-45); MEAN CORPUSCULAR HEMOGLOBIN 30.1 pg (27.0-33.4); MEAN CORPUSCULAR HGB CONC 34.3 g/dL (32.0-36.0); MEAN CORPUSCULAR VOLUME 88 fl (80-97); MONOCYTES % (AUTO) 3.5 % (3-13); PLATELET COUNT 321 10^3/uL (150-450); RED BLOOD COUNT 4.14 10^6/uL (3.72-5.28); RED CELL DISTRIBUTION WIDTH 13.4 % (11.5-14.0); SEGMENTED NEUTROPHILS % (AUTO) 88.8 % (42-78); TOTAL CELLS COUNTED % (AUTO) 100 %; WHITE BLOOD COUNT 14.3 10^3/uL (4.0-10.5)
[2020-09-10 11:13] LABS: ALBUMIN 3.4 g/dL (3.5-5.0); ALKALINE PHOSPHATASE 155 U/L (38-126); ANION GAP 10 (5-19); ASPARTATE AMINO TRANSFERASE 21 U/L (14-36); BILIRUBIN,DIRECT 0.3 mg/dL (0.0-0.4); BILIRUBIN,TOTAL 0.5 mg/dL (0.2-1.3); BLOOD UREA NITROGEN 4 mg/dL (7-20); CALCIUM 9.1 mg/dL (8.4-10.2); CARBON DIOXIDE 21 mmol/L (22-30); CHLORIDE 105 mmol/L (98-107); GLUCOSE 92 mg/dL (75-110); POTASSIUM 4.6 mmol/L (3.6-5.0); TOTAL PROTEIN 6.8 g/dL (6.3-8.2)
[2020-09-10 11:32] LABS: A TYPE INFLUENZA AG NEGATIVE (NEGATIVE); B INFLUENZA AG NEGATIVE (NEGATIVE)
[2020-09-10 12:55] VITALS: BP 96/70
[2020-09-10 13:06] LABS: APPEARANCE,URINE SLIGHTLY-CLOUDY; BILIRUBIN,URINE SMALL (NEGATIVE); COLOR,URINE AMBER; GLUCOSE, URINE NEGATIVE (NEGATIVE); KETONES,URINE 80 mg/dL (NEGATIVE); PROTEIN,URINE 100 mg/dL (NEGATIVE); URINE SPECIFIC GRAVITY 1.024
[2020-09-10 14:25] LABS: URINE AMPHETAMINES SCREEN NEGATIVE; URINE BARBITURATES SCREEN NEGATIVE; URINE BENZODIAZEPINES SCREEN NEGATIVE; URINE COCAINE SCREEN NEGATIVE; URINE METHADONE SCREEN NEGATIVE; URINE PHENCYCLIDINE SCREEN NEGATIVE
[2020-09-10 14:31] LABS: URINE MARIJUANA (THC) SCREEN NEGATIVE
== END 2020-09-10 13:38 | disposition home or self-care (01) ==
LOC: ER 08:20
DX: O23.43 Unspecified infection of urinary tract in pregnancy, third trimester (principal); J40 Bronchitis, not specified as acute or chronic; R06.02 Shortness of breath; Z3A.32 32 weeks gestation of pregnancy
CPT/HCPCS: 94640; 99284; 36415; 85025; 80053; 81001; 80307; 87804; 71045; J7613

== ENCOUNTER 2020-10-05 13:14 | Emergency (ER) | payer MEDICAID ==
[2020-10-05 13:33] VITALS: BP 111/69
--- NOTE | 2020-10-05 15:03 | ER Document Report ---
ED General - General Chief Complaint: Medical Clearance Stated Complaint: MEDICAL CLEARNACE Time Seen by Provider: 10/05/20 14:18 TRAVEL OUTSIDE OF THE [place] IN LAST 30 DAYS: No - HPI Notes: 35-year-old female G6, P4, 37 weeks to the emergency department with police officers with complaints of needing medical clearance. Apparently she is being transferred from [facility] to [facility] in [place]. The accepting physician at [facility] feels like the patient needs medical clearance. The patient states that she has been having "prelabor contractions". She states she will feel pressure into her vagina and rectum and a little bit of pain. She states that it feels like early contractions. She does admit to a little bit of leakage but denies a gross bloody show. She states that just prior to our conversation, she had an episode of this pressure. Denies any nausea or vomiting. Apparently she was on chronic pain management and was taking Percocet. It was initially thought that perhaps she had some withdrawal symptoms. However, she has not had any nausea or vomiting, diaphoresis. She is not sure when she last of Percocet. She denies any diarrhea. She denies any chest pain, shortness of breath. Denies any urinary symptoms. - Related Data Allergies/Adverse Reactions: iodine [Iodine] Allergy (Severe, Verified 09/10/20 08:34) swelling shellfish derived Allergy (Verified 09/10/20 08:34) Past Medical History - General Information source: Patient, Law Enforcement - Social History Smoking Status: Former Smoker Frequency of alcohol use: None Drug Abuse: Other - Prescribed Percocet by [facility] Family History: Reviewed & Not Pertinent, CAD, Thyroid Disfunction, Other - Asthma, COPD - Past Medical History Cardiac Medical History: Denies: Hx Coronary Artery Disease, Hx Heart Attack, Hx Hypertension Pulmonary Medical History: Reports: Hx Asthma - CHILDHOOD, Hx COPD Denies: Hx Bronchitis, Hx Pneumonia Neurological Medical History: Reports: Hx Migraine. Denies: Hx Cerebrovascular Accident, Hx Seizures Endocrine Medical History: Reports: Hx Hyperthyroidism Renal/ Medical History: Reports: Hx Kidney Stones, Hx Ovarian Cysts. Denies: Hx Peritoneal Dialysis GI Medical History: Reports: Hx Gastroesophageal Reflux Disease, Hx Hiatal Hernia Musculoskeletal Medical History: Denies Hx Arthritis, Reports Hx Musculoskeletal Deformity, Reports Hx Musculoskeletal Trauma Skin Medical History: Psychiatric Medical History: Reports: Hx Anxiety, Hx Attention Deficit Hyperactivity Disorder, Hx Bipolar Disorder, Hx Depression Traumatic Medical History: Reports: Hx Fractures - Facial fractures Past Surgical History: Reports: Hx Dilation and Curettage, Hx Gynecologic Surgery - CERVICAL BIOPSY/TIGHTENING OF CERVIX, Hx Orthopedic Surgery - FACIAL PLATES - Immunizations Immunizations up to date: Yes Hx Diphtheria, Pertussis, Tetanus Vaccination: Yes Review of Systems - Review of Systems Constitutional: denies: Chills, Fever EENT: No symptoms reported Cardiovascular: denies: Chest pain, Palpitations, Dyspnea, Syncope, Dizziness, Lightheaded Respiratory: denies: Cough, Short of breath Gastrointestinal: Abdominal pain - Pressure in the lower abdomen and into the vagina and rectum consistent with "contractions". denies: Diarrhea, Nausea, Vomiting Genitourinary: denies: Burning, Frequency, Flank pain, Hematuria Female Genitourinary: Other - Mild vaginal leakage, no aracely bloody show Musculoskeletal: No symptoms reported Skin: No symptoms reported Hematologic/Lymphatic: No symptoms reported Neurological/Psychological: No symptoms reported -: Yes All other systems reviewed and negative Physical Exam - Vital signs Vitals: Temp Pulse Resp BP Pulse Ox 97.9 F 73 16 111/69 98 10/05/20 13:30 10/05/20 13:30 10/05/20 13:30 10/05/20 13:30 10/05/20 13:30 Interpretation: Normal - General General appearance: Appears well, Alert - HEENT Head: Normocephalic, Atraumatic Eyes: Normal Pupils: PERRL - Respiratory Respiratory status: No respiratory distress Chest status: Nontender Breath sounds: Normal Chest palpation: Normal - Cardiovascular Rhythm: Regular Heart sounds: Normal auscultation Murmur: No - Abdominal Notes: Gravid abdomen. Fundus is well above the umbilicus and consistent with 37 weeks. She has some mild discomfort with palpation to the pelvic abdomen and left lower quadrant. No CVA tenderness. - Back Back: Normal, Nontender. 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 I called and spoke with Nayana, charge nurse, from labor and delivery. We will send her to labor and delivery for labor check. Did tell Nayana that we would send a urinalysis as well. She agrees with the plan. We will discharge the patient from the emergency department and sent to labor and delivery. - Vital Signs Vital signs: Temp Pulse Resp BP Pulse Ox 97.9 F 73 16 111/69 98 10/05/20 13:30 10/05/20 13:30 10/05/20 13:30 10/05/20 13:30 10/05/20 13:30 Discharge - Discharge Clinical Impression: Abdominal pain during in third trimester Condition: Stable Disposition: LABOR CHECK Additional Instructions: Go directly to Labor and Delivery for Labor Check
[2020-10-05 16:04] LABS: APPEARANCE,URINE CLEAR; BILIRUBIN,URINE NEGATIVE (NEGATIVE); COLOR,URINE YELLOW; GLUCOSE, URINE NEGATIVE (NEGATIVE); KETONES,URINE NEGATIVE (NEGATIVE); LEUKOCYTE ESTERASE,URINE TRACE (NEGATIVE); NITRITE,URINE NEGATIVE (NEGATIVE); PROTEIN,URINE NEGATIVE (NEGATIVE); URINE SPECIFIC GRAVITY 1.014; UROBILINOGEN,URINE NEGATIVE mg/dL (<2.0)
== END 2020-10-05 16:16 | disposition admitted as inpatient to this hospital (09) ==
LOC: ER 13:14
DX: O26.893 Other specified pregnancy related conditions, third trimester (principal); R10.2 Pelvic and perineal pain; O99.613 Diseases of the digestive system complicating pregnancy, third trimester; K62.89 Other specified diseases of anus and rectum; O99.513 Diseases of the respiratory system complicating pregnancy, third trimester; J44.9 Chronic obstructive pulmonary disease, unspecified; Z3A.37 37 weeks gestation of pregnancy; Z87.891 Personal history of nicotine dependence
CPT/HCPCS: 81001; 99283

== ENCOUNTER 2020-10-05 15:46 | Outpatient (CLI) | payer MEDICAID ==
[2020-10-05] MEDS ORDERED: BETAMET ACET/BETAMET NA INJ 6 MG/1 ML IM ONE (16:26)
[2020-10-05] MEDS ORDERED: BETAMET ACET/BETAMET NA INJ 6 MG/1 ML ONE (16:40)
--- NOTE | 2020-10-05 16:55 | RADIOLOGY REPORT (SQ) ---
EXAM DESCRIPTION: U/S OB LIMITED IMAGES COMPLETED DATE/TIME: 10/05/2020 4:42 pm REASON FOR STUDY: weight, s/d ratio, LIVAN COMPARISON: None. TECHNIQUE: Limited transabdominal grayscale ultrasound for evaluation of specific requested obstetri angel parameters. LIMITATIONS: None. FINDINGS: CERVICAL LENGTH: Not seen. LIVAN: 11.1 cm. FHR: 144 beats per minute. PRESENTATION: Cephalic. PLACENTA: Anterior grade 2 ANATOMY: Not assessed OTHER: Intrauterine gestation of 36 weeks 3 days. Estimated body weight 2345+/- 347 g. 12th pe rcentile. IMPRESSION: Intrauterine gestation of 36 weeks 3 days. Findings as described. S/ D ratio was not o btained. Trimester of : Third trimester - 28 weeks to delivery. TECHNICAL DOCUMENTATION: JOB ID: [id number] 2010 [employer]- All Rights Reserved Reading location - IP/workstation name: [email or web address]
[2020-10-05 17:00] LABS: ABSOLUTE EOSINOPHILS # (AUTO) 0.1 10^3/uL (0.0-0.6); ABSOLUTE LYMPHOCYTES (AUTO) 1.5 10^3/uL (0.5-4.7); ABSOLUTE MONOCYTES (AUTO) 0.5 10^3/uL (0.1-1.4); BASOPHILS % (AUTO) 0.3 % (0-2); EOSINOPHILS % (AUTO) 0.8 % (0-6); HEMATOCRIT 32.8 % (36.0-47.0); HEMOGLOBIN 11.4 g/dL (12.0-15.5); LYMPHOCYTES % (AUTO) 14.7 % (13-45); MEAN CORPUSCULAR HEMOGLOBIN 29.9 pg (27.0-33.4); MEAN CORPUSCULAR HGB CONC 34.6 g/dL (32.0-36.0); MEAN CORPUSCULAR VOLUME 86 fl (80-97); PLATELET COUNT 248 10^3/uL (150-450); RED CELL DISTRIBUTION WIDTH 13.3 % (11.5-14.0); SEGMENTED NEUTROPHILS % (AUTO) 79.2 % (42-78); TOTAL CELLS COUNTED % (AUTO) 100 %; WHITE BLOOD COUNT 10.1 10^3/uL (4.0-10.5)
[2020-10-05] MEDS ORDERED: RINGERS SOLUTION,LACTATED 1,000 ML IV PRN (17:13)
[2020-10-05] MEDS ORDERED: RINGERS SOLUTION,LACTATED 1,000 ML IV ONE (17:13)
[2020-10-05] MEDS ORDERED: PENICILLIN G POTASSIUM 5,000,000 UNIT in DEXTROSE 5%-WATER 100 ML IV ONE (17:13)
[2020-10-05] MEDS ORDERED: PENICILLIN G-K 5 MILLION UNIT VIAL ONE (17:15)
[2020-10-05 17:39] LABS: APPEARANCE,URINE CLEAR; BILIRUBIN,URINE NEGATIVE (NEGATIVE); COLOR,URINE YELLOW; GLUCOSE, URINE NEGATIVE (NEGATIVE); KETONES,URINE 20 mg/dL (NEGATIVE); LEUKOCYTE ESTERASE,URINE SMALL (NEGATIVE); NITRITE,URINE NEGATIVE (NEGATIVE); PROTEIN,URINE NEGATIVE (NEGATIVE); URINE SPECIFIC GRAVITY 1.006; UROBILINOGEN,URINE NEGATIVE mg/dL (<2.0)
[2020-10-05 17:45] LABS: BACTERIA (WET MOUNT) 4+ BACTERIA SEEN; EPITHELIALS (WET MOUNT) 4+ EPITHELIALS SEEN; T.VAGINALIS (WET MOUNT) TRICHOMONAS SEEN; WBCS (WET MOUNT) 4+ WBCS SEEN; YEAST (WET MOUNT) NO YEAST SEEN
[2020-10-05 17:58] LABS: URINE AMPHETAMINES SCREEN NEGATIVE; URINE BARBITURATES SCREEN NEGATIVE; URINE BENZODIAZEPINES SCREEN NEGATIVE; URINE COCAINE SCREEN NEGATIVE; URINE MARIJUANA (THC) SCREEN NEGATIVE; URINE METHADONE SCREEN NEGATIVE; URINE PHENCYCLIDINE SCREEN NEGATIVE
[2020-10-05] MEDS ORDERED: METRONIDAZOLE 500 MG/NS RTU 500 MG/100 ML RTUPB IV ONE (18:14)
--- NOTE | 2020-10-05 18:23 | Admission Physical ---
Datetime Report Generated by CPN: 10/05/2020 18:22 CURRENT ADMISSION Chief Complaint: Uterine Contractions; Suspected Ruptured Membranes; Other Chief Complaint Other: Severe IUGR Admit Impression : Term, Intrauterine ; Intact Membranes; Observation/Evaluation Admit Plan: Admit to Unit; Observation/Evaluation ALLERGIES Medication Allergies: Yes Medication Allergies: iodine/SV/swelling (10/05/2020); shellfish derived (10/05/2020) Latex: No Latex Allergies OBSTETRICAL HISTORY EDC: 10/30/2020 00:00 : 6 Para: 4 Term: 1 : 4 SAB: 0 IAB: 0 Ectopic: 0 Livin Cesareans: 0 VBACs: 0 Multiple Births: 0 Gestational Diabetes: Unknown Rh Sensitization: No Incompetent Cervix: Yes VASQUEZ: No Infertility: No ART Treatment: No Uterine Anomaly: No IUGR: Yes Hx Previous C/S: No Macrosomia: No Hx Loss/Stillborn: Yes PIH: No Hx : No Placenta Previa/Abruption: No Depression/PP Depression: Yes PTL/PROM: Yes Post Hemorrhage: Yes Current Procedures: Ultrasound; NST; Cerclage Obstetrical History Comments: G1-07/2000 40W male 8-15 G2-11/2000 36w male stillborn G3- 09/2008 34w female 4-4 G4- 01/2010 34w male 5-16 (cerclage) G5- 10/2011 35w female 4-14 (cerclage) G6- current (cerclage in place) SEE RECORDS Cigarettes: Current Everyday Smoker. 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 Surgery: No Heart Disease: No Hosp/Surgery: Yes Autoimmune Disorder: No Anesthetic Complications: No Kidney Disease: No Abnormal Pap Smear: Yes Neuro/Epilepsy: No Psychiatric Disorders: Yes Other Medical Diseases: No Hepatitis/Liver Disease: No Significant Family History: No Varicosities/Phlebitis: No Thyroid Dysfunction: No Medical History Comments: Bipolar PPDepression with last child-was on Blood transfusion following 1st child/stillbirth asthma INFECTIOUS HISTORY HPV: Yes PHYSICAL EXAM General: Normal HEENT: Normal Neurologic: Normal Thyroid: Normal Heart: Normal Lungs: Normal Breast: Normal Back: Normal Abdomen: Normal Genitourinary Exam: Normal Extremities: Normal DTRs: Normal Pelvic Type: Adequate Vital Signs: Reviewed VAGINAL EXAM Dilatation: 1 Effacement: 50 Station: -3 Contraction Comments: q 2-4 MEMBRANES Membranes: Intact FETUS A EGA: 36.3 Monitoring: External US FHR- Baseline: 120 Variability: Moderate 6-25bpm Accelerations: 15X15 Decelerations: None Estimated Weight (gm): 2216 Presentation: Vertex Admit Comment: 35yo at 36+3ega presents from [facility] to get medical clearance. She was last seen in the office on 09/27 and dx with severe IUGR and instructed to present to labor and delivery and [facility] MFM consult. She did not go to [facility] for eval and did not see MFM. She has a known cerclage placed early due to cervical shortening. 09/27 pt c/o of cramping and cervix was ft and no tension on cerclage. Today she is ctx q 2-3 minutes and tension on cerclage with spotting in vagina. Frothy discharge also in vagina. GC/CT and GBS neg from 09/27. Wet prep done and GC/CT repeated. Cerclage removed due to tension on cerclage and spotting. Actimprom negative. Flagyl ordered for trich IV initial dose then will give po. Will make NICU aware. D/w Dr. Harris with [facility] regarding patient incarcerated and [facility] plan to transfer [facility] to [facility] [place] and needing medical clearance - however, due to concern of IUGR MFM agrees that patient should be admitted and (delivered if baby concerns) or await induction utnil 37wks. Now with dx of trich will delay induction until can get treatment on board. Patient informed of Trich and treatment plan. cvx 1.5/50/-3. Still having regular painful contraction. H/o stillborn at 36wks. Admit anticipate either spontaneous vaginal delivery or need for indxn in the next several days. EFW today 4% and c/w EFW done on 09/27 in office. EFW 2216g Patient states she sees [facility] for chronic pain - on narcotics. UDS ordered. Smoker 1/2 ppd. PLANS FOR LABOR AND DELIVERY Labor and Delivery: None Pain Management: Epidural Feeding Preference: Breast Circumcision: N/A INFORMED CONSENT Informed Consent Obtained: Vaginal Delivery; Risks, Benefits and Alternatives Discussed Signature: with User ID: [email or web address]
[2020-10-05] MEDS ORDERED: METRONIDAZOLE RTU 500 MG/NS 100 ML IV ONE (18:30)
--- NOTE | 2020-10-05 18:45 | L&D Progress Notes ---
PROGRESS NOTES Datetime Report Generated by CPN: 10/05/2020 18:45 PROGRESS NOTE Informed Consent Obtained: Vaginal Delivery; Risks, Benefits and Alternatives Discussed Comment: Pt now states her last Percocet was in April and now the treatment center has her on Subutex. She was asked this in the office on 09/27 and only admitted to pain meds for crhonic pain from her pain doctor. So she has only just now revealed that she is on Subutex. Reportedly she is on 12mg per day. Her UDS is positive for optiates - confirmation sent. VAGINAL EXAM Dilatation: 1 Effacement: 50 Station: -3 Contractions: q 2-4 LAST VAGINAL EXAM-NURSING Nursing Exam Dilitation: 2.0 Nursing Exam Effacement: 50 Nursing Exam Station: -2 MEMBRANES Membranes: Intact FETUS A Estimated Weight (gm): 2216 Presentation: Vertex SIGNATURE SIGNATURE: [id number];[id number] Signature: with User ID: [email or web address]
[2020-10-05 19:31] LABS: CHLAM PCR NOT DETECTED (NOT DETECT)
--- NOTE | 2020-10-05 19:53 | L&D Progress Notes ---
PROGRESS NOTES Datetime Report Generated by CPN: 10/05/2020 19:52 PROGRESS NOTE Informed Consent Obtained: Vaginal Delivery; Risks, Benefits and Alternatives Discussed Comment: Pt posted chavez. Pt and boyfriend leave room 4 and briskly walk down the hallway. Ninfa caught up with patient and demanded to see IV and remove it. Patient ripped IV out and bleeding everywhere but did allow Ninaf to place dressing on IV site. She was reminded of infection (STD) trichomonas and need for treatment, growth restriction, need for treatment and risk or and maternal . Will send to [facility] as patient desires. Patient signed AMA form. VAGINAL EXAM Dilatation: 1 Effacement: 50 Station: -3 Contractions: q 2-4 LAST VAGINAL EXAM-NURSING Nursing Exam Dilitation: 2.0 Nursing Exam Effacement: 50 Nursing Exam Station: -2 MEMBRANES Membranes: Intact FETUS A Estimated Weight (gm): 2216 Presentation: Vertex SIGNATURE SIGNATURE: [id number];[id number] Signature: with User ID: [email or web address]
[2020-10-05] MEDS ORDERED: PENICILLIN G POTASSIUM 2,500,000 UNIT in DEXTROSE 5%-WATER 50 ML IV SCH (21:14)
[2020-10-06] MEDS ORDERED: METRONIDAZOLE RTU 500 MG/NS 100 ML IV SCH (06:00)
--- NOTE | 2020-10-07 12:38 | Non Stress Test Report ---
Non Stress Test Datetime Report Generated by CPN: 10/07/2020 12:37 DEMOGRAPHIC Test Number: 1 EGA NST: 36.5 INDICATION Indication for Study (NST) Other: Rule out labor VITAL SIGNS Temperature - NST: 97.9 Pulse - NST: 68 RESP - NST: 15 NBPSYS NST: 122 NBPDIA NST: 73 MONITORING Monitor Explained: Monitor Explained; Test Explained; Patient Verbalized Understanding Time on Monitor: 10/07/2020 11:14 Time off Monitor: 10/07/2020 12:21 NST Duration: 67 NST INTERVENTIONS NST Interventions: PO Hydration Physician Notified NST: Hernandez MD BABY A: [id number] BABY A Movement : Present Contraction Frequency : 5-11 FHR Baseline : 140 Accelerations : 15X15 Decelerations : None Variability : Moderate 6-25bpm NST Review: Meets Criteria for Reactive NST NST Review and Verified By : VERNON Del Angel NST Results: Reactive NST REPORT Report Trigger: Send Report
== END 2020-10-05 19:40 | disposition home or self-care (01) ==
LOC: LC 15:46 → UNDOADMIN 16:22 → LR 16:22 → LC 19:40 → UNDODISIN 19:40
PROVIDERS: ATTEND Student in an Organized Health Care Education/Training Program
PROC: 4A1HXCZ Monitoring of Products of Conception, Cardiac Rate, External Approach (ICD-10-PCS; principal; 2020-10-05)
DX: O36.5931 Maternal care for other known or suspected poor fetal growth, third trimester, fetus 1 (principal); O99.333 Smoking (tobacco) complicating pregnancy, third trimester; O99.513 Diseases of the respiratory system complicating pregnancy, third trimester; J45.909 Unspecified asthma, uncomplicated; O26.893 Other specified pregnancy related conditions, third trimester; G89.29 Other chronic pain; O98.313 Other infections with a predominantly sexual mode of transmission complicating pregnancy, third trimester; A59.00 Urogenital trichomoniasis, unspecified; Z3A.36 36 weeks gestation of pregnancy; Z79.899 Other long term (current) drug therapy; Z53.20 Procedure and treatment not carried out because of patient's decision for unspecified reasons
CPT/HCPCS: 59025; 86900; 86901; 36415; 87086; 87210; 86850; 85025; 87088; 86592; 81001; 87186; 80307; 87491; 87591; 80361; 84112; 76815; J3490; J2540; J0702; J7060

== ENCOUNTER 2020-10-07 10:56 | Outpatient (CLI) | payer MEDICAID ==
[2020-10-07 11:49] LABS: APPEARANCE,URINE CLOUDY; BILIRUBIN,URINE NEGATIVE (NEGATIVE); COLOR,URINE YELLOW; GLUCOSE, URINE NEGATIVE (NEGATIVE); KETONES,URINE NEGATIVE (NEGATIVE); LEUKOCYTE ESTERASE,URINE TRACE (NEGATIVE); NITRITE,URINE NEGATIVE (NEGATIVE); PROTEIN,URINE NEGATIVE (NEGATIVE); URINE SPECIFIC GRAVITY 1.016; UROBILINOGEN,URINE NEGATIVE mg/dL (<2.0)
[2020-10-07 12:03] LABS: URINE AMPHETAMINES SCREEN NEGATIVE; URINE BARBITURATES SCREEN NEGATIVE; URINE BENZODIAZEPINES SCREEN NEGATIVE; URINE COCAINE SCREEN NEGATIVE; URINE MARIJUANA (THC) SCREEN NEGATIVE; URINE METHADONE SCREEN NEGATIVE; URINE PHENCYCLIDINE SCREEN NEGATIVE
== END 2020-10-07 12:39 | disposition home or self-care (01) ==
LOC: LC 10:56
PROVIDERS: ATTEND Obstetrics & Gynecology Gynecology
DX: O26.893 Other specified pregnancy related conditions, third trimester (principal); R10.9 Unspecified abdominal pain; M54.9 Dorsalgia, unspecified; Z3A.36 36 weeks gestation of pregnancy
CPT/HCPCS: 59025; 80307; 81001

== ENCOUNTER 2020-10-08 18:15 | Inpatient (IN) | payer MEDICAID ==
[2020-10-08] MEDS ORDERED: OXYTOCIN 10 UNIT/ML VIAL ONE (18:19)
[2020-10-08] MEDS ORDERED: MISOPROSTOL 0.2 MG TABLET ONE (18:19)
[2020-10-08] MEDS ORDERED: OXYTOCIN/0.9 % SODIUM CHLORIDE 30 UNIT/500 ML RTUINJ ONE (18:20)
[2020-10-08] MEDS ORDERED: LIDOCAINE 1% INJ-PF (10 MG/ML) 30 ML SDV ONE (18:20)
[2020-10-08] MEDS ORDERED: BETAMET ACET/BETAMET NA INJ 6 MG/1 ML ONE (18:37)
[2020-10-08] MEDS ORDERED: RINGERS SOLUTION,LACTATED 1,000 ML IV ONE (18:38)
[2020-10-08] MEDS ORDERED: RINGERS SOLUTION,LACTATED 1,000 ML IV PRN (18:38)
[2020-10-08] MEDS ORDERED: BETAMET ACET/BETAMET NA INJ 6 MG/1 ML IM ONE (18:41)
[2020-10-08 19:23] LABS: ABSOLUTE EOSINOPHILS # (AUTO) 0.2 10^3/uL (0.0-0.6); ABSOLUTE LYMPHOCYTES (AUTO) 1.8 10^3/uL (0.5-4.7); ABSOLUTE MONOCYTES (AUTO) 0.7 10^3/uL (0.1-1.4); ABSOLUTE NEUT (AUTO) 7.7 10^3/uL (1.7-8.2); BASOPHILS % (AUTO) 0.4 % (0-2); EOSINOPHILS % (AUTO) 1.5 % (0-6); HEMATOCRIT 29.7 % (36.0-47.0); HEMOGLOBIN 10.7 g/dL (12.0-15.5); LYMPHOCYTES % (AUTO) 17.3 % (13-45); MEAN CORPUSCULAR HEMOGLOBIN 30.9 pg (27.0-33.4); MEAN CORPUSCULAR HGB CONC 35.9 g/dL (32.0-36.0); MEAN CORPUSCULAR VOLUME 86 fl (80-97); MONOCYTES % (AUTO) 6.8 % (3-13); PLATELET COUNT 254 10^3/uL (150-450); RED BLOOD COUNT 3.45 10^6/uL (3.72-5.28); RED CELL DISTRIBUTION WIDTH 13.2 % (11.5-14.0); TOTAL CELLS COUNTED % (AUTO) 100 %; WHITE BLOOD COUNT 10.4 10^3/uL (4.0-10.5)
[2020-10-08] MEDS ORDERED: METRONIDAZOLE 500 MG/NS RTU 500 MG/100 ML RTUPB IV ONE (19:32)
[2020-10-08 19:33] LABS: APPEARANCE,URINE SLIGHTLY-CLOUDY; BILIRUBIN,URINE NEGATIVE (NEGATIVE); COLOR,URINE YELLOW; GLUCOSE, URINE NEGATIVE (NEGATIVE); KETONES,URINE NEGATIVE (NEGATIVE); LEUKOCYTE ESTERASE,URINE NEGATIVE (NEGATIVE); NITRITE,URINE NEGATIVE (NEGATIVE); PROTEIN,URINE NEGATIVE (NEGATIVE); URINE SPECIFIC GRAVITY 1.013; UROBILINOGEN,URINE NEGATIVE mg/dL (<2.0)
[2020-10-08 19:51] LABS: URINE AMPHETAMINES SCREEN NEGATIVE; URINE BARBITURATES SCREEN NEGATIVE; URINE BENZODIAZEPINES SCREEN NEGATIVE; URINE COCAINE SCREEN NEGATIVE; URINE MARIJUANA (THC) SCREEN NEGATIVE; URINE METHADONE SCREEN NEGATIVE; URINE PHENCYCLIDINE SCREEN NEGATIVE
[2020-10-08] MEDS ORDERED: METRONIDAZOLE 500 MG/NS RTU 500 MG/100 ML RTUPB IV SCH (21:00)
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
[2020-10-09] MEDS ORDERED: OXYTOCIN/0.9 % SODIUM CHLORIDE 30 UNIT/500 ML RTUINJ IV PRN ×2 (01:00→12:30)
[2020-10-09] MEDS ORDERED: NALBUPHINE HCL INJ 10 MG/1 ML AMPULE ONE (07:32)
[2020-10-09] MEDS ORDERED: NALBUPHINE HCL INJ 10 MG/1 ML AMPULE INJ ONE (07:34)
[2020-10-09] MEDS ORDERED: EPHEDRINE SULFATE INJ 50 MG/1 ML AMPULE ONE (08:01)
[2020-10-09] MEDS ORDERED: ROPIVACAINE HCL 0.2% INJ/PF (2 MG/ML) 20 ML SDV ONE (08:01)
[2020-10-09] MEDS ORDERED: FENTANYL/BUPIVACAINE/NS/PF 300 MCG/150 ML RTUINJ EPI ONE (08:01)
--- NOTE | 2020-10-09 08:51 | L&D Progress Notes ---
PROGRESS NOTES Datetime Report Generated by CPN: 10/09/2020 08:51 PROGRESS NOTE Plan: Induction Informed Consent Obtained: Risks, Benefits and Alternatives Discussed Vital Signs : Reviewed; Within Normal Limits Comment: Assuming care of patient. IOL for IUGR at 37 weeks. Pitocin infusing. Epidural in place, pt becoming comfortable. Pitocin turned down due to variable and some late decels. Position changes made. Ve per RN pt remains 1 cm and remote from delivery. Discussed w/ patient to possibility of needing to move towards delivery if Cat 2 FHR tracing continues. Pt verbalized understanding. Will update Dr Christie who is the attending MD today. VAGINAL EXAM Dilatation: 1 Effacement: 75 Station: -1 Contractions: q 2-4 LAST VAGINAL EXAM-NURSING Nursing Exam Dilitation: 1.0 Nursing Exam Effacement: 75 Nursing Exam Station: -1 Nursing Exam Contractions: irregular MEMBRANES Pooling: Negative Membranes: Intact FETUS A FHR - Baseline: 150 Monitoring: External US Variability: Moderate 6-25bpm Accelerations: 10X10 Decelerations: Late; Variable FHR Category: Category II : 36.6 Estimated Weight (gm): 2700 Presentation: Vertex SIGNATURE SIGNATURE: [id number];[id number];[id number] Assignment: Julio Christie MD Signature: with User ID: [email or web address] : with User ID: [email or web address]
[2020-10-09] MEDS: BUPRENORPHINE HCL 2 MG SUBLINGUAL TABLET SL SCH (09:55)
--- NOTE | 2020-10-09 09:57 | L&D Progress Notes ---
PROGRESS NOTES Datetime Report Generated by CPN: 10/09/2020 09:56 PROGRESS NOTE Impression: Normal Progression of Labor Procedures: Sterile Vag Exam Plan: Continue Present Management; Induction Informed Consent Obtained: Risks, Benefits and Alternatives Discussed Vital Signs : Reviewed; Within Normal Limits Comment: Pitocin infusion decreased and FHR improved to a Cat 1 FHR tracing. Plan of care reviewed w/ Dr Christie and since FHR tracing had reassuring characteristics, will attempt to proceed with Pitocin IOL. VE 2-3//0. Able to breakup the cervical stenosis that was present. Position changes encouraged. Will continue to watch FHR tracing closely. Dr Christie agrees w/ plan of care VAGINAL EXAM Dilatation: 2-3 Effacement: 90 Station: 0 Contractions: q2-4 LAST VAGINAL EXAM-NURSING Nursing Exam Dilitation: 2.0 Nursing Exam Effacement: 90 Nursing Exam Station: -1 Nursing Exam Contractions: irregular MEMBRANES Pooling: Negative Membranes: Intact FETUS A FHR - Baseline: 140 Monitoring: External US Variability: Minimal - Undetectable to <=5bpm Accelerations: 10X10 Decelerations: None FHR Category: Category II : 36.6 Estimated Weight (gm): 2700 Presentation: Vertex SIGNATURE SIGNATURE: [id number];[id number];[id number] Assignment: Julio Christie MD Signature: with User ID: [email or web address] : with User ID: [email or web address]
--- NOTE | 2020-10-09 11:48 | L&D Progress Notes ---
PROGRESS NOTES Datetime Report Generated by CPN: 10/09/2020 11:47 PROGRESS NOTE Impression: Normal Progression of Labor Procedures: Artificial ROM; Sterile Vag Exam Plan: Continue Present Management; Anticipate Vaginal Delivery Informed Consent Obtained: Risks, Benefits and Alternatives Discussed Vital Signs : Reviewed; Within Normal Limits Comment: Variable decels occuring, VE 6/90/0. AROM w/ bloody fluid, position changes encouraged. Anticipate . VAGINAL EXAM Dilatation: 2-3 Effacement: 90 Station: 0 Contractions: q2-4 LAST VAGINAL EXAM-NURSING Nursing Exam Dilitation: 6.0 Nursing Exam Effacement: 90 Nursing Exam Station: -1 Nursing Exam Contractions: irregular MEMBRANES Pooling: Negative Membranes: Ruptured Amniotic Fluid Color: Bloody FETUS A FHR - Baseline: 150 Monitoring: External US Variability: Moderate 6-25bpm Accelerations: 10X10 Decelerations: Variable FHR Category: Category II : 36.6 Estimated Weight (gm): 2700 Presentation: Vertex SIGNATURE SIGNATURE: [id number];[id number];[id number] Assignment: Julio Christie MD Signature: with User ID: [email or web address] : with User ID: [email or web address]
[2020-10-09] MEDS ORDERED: PROMETHAZINE HCL 25 MG TABLET PO PRN (12:30)
[2020-10-09] MEDS ORDERED: MAGNESIUM HYDROXIDE SUSP 30 ML UDCUP PO PRN (12:30)
[2020-10-09] MEDS ORDERED: DIPHENHYDRAMINE HCL 25 MG CAPSULE PO PRN (12:30)
[2020-10-09] MEDS ORDERED: ACETAMINOPHEN WITH CODEINE #3 TABLET PO PRN (12:30)
[2020-10-09] MEDS ORDERED: PSEUDOEPHEDRINE HCL 30 MG TABLET PO PRN (12:30)
[2020-10-09] MEDS ORDERED: MEASLES,MUMPS&RUBELLA VACC/PF 0.5 ML VIAL SUBCUT PRN (12:30)
[2020-10-09] MEDS ORDERED: PROMETHAZINE HCL INJ 25 MG/1 ML VIAL IV PRN (12:30)
[2020-10-09] MEDS ORDERED: NA PHOS,M-B/NA PHOS,DI-BA (ADULT) 133 ML ENEMA PR PRN (12:30)
[2020-10-09] MEDS ORDERED: BENZOCAINE/MENTHOL AEROSOL SPRAY 56 ML TOP PRN (12:30)
[2020-10-09] MEDS ORDERED: ACETAMINOPHEN 650 MG SUPP.RECT PR PRN (12:30)
[2020-10-09] MEDS ORDERED: DIBUCAINE 1% OINTMENT 28 GM TP PRN (12:30)
[2020-10-09] MEDS ORDERED: PROMETHAZINE HCL 25 MG SUPP.RECT PR PRN (12:30)
[2020-10-09] MEDS ORDERED: GLYCERIN/WITCH HAZEL LEAF 1 EACH MED..WIPE TP PRN (12:30)
[2020-10-09] MEDS ORDERED: ZOLPIDEM TARTRATE 5 MG TABLET PO PRN (12:30)
[2020-10-09] MEDS ORDERED: DIPH/PERTUSS(ACELL)/TETANUS VAC/PF 0.5 ML SYR (>=10YO) IM PRN (12:30)
--- NOTE | 2020-10-09 15:03 | Delivery Summary ---
Del Sum A-C Datetime Report Generated by CPN: 10/09/2020 15:03 DELIVERY PERSONNEL DELIVERY PERSONNEL: [id number] Delivery Doctor:: Julio Christie MD Labor and Delivery Nurse:: Hawa Singer RNprogram project analyst Nurse:: Karin Belcher RN Nursery Nurse:: Ana Cedillo RN Additional Personnel: : Zeinab Mehta RN MATERNAL INFORMATION Delivery Anesthesia: Epidural Medications After Delivery: Pitocin 30 Units in 500ml NS/D5W Estimated Blood Loss (ml): 250 Delivery QBL: 150 Maternal Complications: Precipitous Labor (<3hrs); Other Complication Details: IUGR LABOR SUMMARY EDC: 10/30/2020 00:00 No. Babies in Womb: 1 Attempted: No Labor Anesthesia: Epidural LABOR INFORMATION Reason for Induction: Intrauterine Growth Retardation Onset of Labor: 10/09/2020 09:41 Complete Dilatation: 10/09/2020 12:02 Oxytocin: Induction Group B Beta Strep: negative Name of Antibiotic Given: NA Steroids Given: Full Course Reason Steroids Not Administered: Not Applicable MEMBRANES Membranes Rupture Method: Spontaneous Rupture of Membranes: 10/09/2020 02:50 Length of Rupture (hr): 9.30 Amniotic Fluid Color: Clear Amniotic Fluid Amount: Small Amniotic Fluid Odor: Normal STAGES OF LABOR Stage 1 hr: 2 Stage 1 min: 21 Stage 2 hr: 0 Stage 2 min: 6 Stage 3 hr: 0 Stage 3 min: 8 Total Time in Labor hr: 2 Total Time in Labor min: 35 VAGINAL DELIVERY Episiotomy: None Laceration #1: None Laceration Extension #1: N/A Laceration #2: None Laceration Extension #2: N/A Laceration #3: None Laceration Extension #3: N/A Laceration Repair: Not Applicable Laceration Repair Note: cerclage suture removed. The cervix was inspected and was not bleeding. Sponge Count Correct: Vaginal Sweep Performed Sharps Count Correct: N/A BABY A INFORMATION Delivery Date/Time: 10/09/2020 12:08 Method of Delivery: Vaginal Nurse Controlled Delivery: No Born in Route : No : N/A Forceps: N/A Vacuum Extraction: N/A Shoulder Dystocia : No PRESENTATION/POSITION BABY A Presentation: Cephalic Cephalic Presentation: Vertex Vertex Position: Left Occipital Anterior Breech Presentation: N/A PLACENTA INFORMATION BABY A Placenta Delivery Time : 10/09/2020 12:16 Placenta Method of Delivery: Spontaneous Placenta Status: Delivered SCORES BABY A Heart Rate 1 min: >100 bpm Resp Effort 1 min: Good Cry Reflex Irritability 1 min: Cough or Sneeze or Pulls Away Muscle Tone 1 min: Active Motion Color 1 min: Blue/Pale Resuscitation Effort 1 min: Tactile Stimulation SCORE 1 MIN: 8 Heart Rate 5 min: >100 bpm Resp Effort 5 min: Good Cry Reflex Irritability 5 min: Cough or Sneeze or Pulls Away Muscle Tone 5 min: Active Motion Color 5 min: Body [place], Extremities Blue Resuscitation Effort 5 min: Tactile Stimulation SCORE 5 MIN: 9 INFORMATION BABY A Gestational Age at Delivery: 37.0 Gestational Status: Early Term- 37- 38.6 Weeks Infant Outcome : Liveborn Infant Condition : Stable Sex: Female IDENTIFICATION BABY A Infant Verification Date/Time: 10/09/2020 13:14 ID Band Number: [id number] Mother's Name Verified: Yes RN Verifying Infant: Heaven Singer JOSE Additional Verifying Personnel: Tennille Belcher RN WEIGHT/LENGTH BABY A Infant Birthweight (gm): 2060 Weight (lb): 4 Weight (oz): 9 Length (in): 17.00 Infant Length (cm): 43.18 CORD INFORMATION BABY A No. Cord Vessels: 3 Nuchal Cord : N/A Cord Blood Taken: Yes-For Eval (Mom's Blood Type - or O+) Suction: Mouth ASSESSMENT BABY A Complications: None Physical Findings at Delivery: Within Normal Limits Respirations: Appears Normal Skin to Skin: Yes Transferred To: Remains with Mother BABY B INFORMATION : N/A SIGNATURES Signature: with User ID: Frank
--- NOTE | 2020-10-09 15:04 | Birth Certificate Data ---
Cert Data Datetime Report Generated by CPN: 10/09/2020 15:03 CERTIFICATE DATA Delivery Provider: Julio Christie MD (09/27/2020 14:59:Julio Christie MD ([facility])) 47a. Care: Yes (09/27/2020 14:59:Aleksandra Angelo RN) 47b. Date of First Visit: 03/14/2020 00:00 (09/27/2020 14:59:Aleksandra Angelo RN) 47c. Date of Last Visit: 09/27/2020 00:00 (09/27/2020 14:59:Aleksandra Angelo RN) 47d. Number of Visits: 7 (09/27/2020 14:59:Aleksandra Angelo RN) 48a. Number of Prev Live Births: 4 (09/27/2020 14:59:Katrin Herrera RN) 48b. Now Livin (09/27/2020 14:59:Katrin Herrera RN) 48c. Live Births Now : 0 (09/27/2020 14:59:QS system process) 48d. Date of Last Live : 10/30/2011 00:00 (09/27/2020 14:59:Aleksandra Angelo RN) 48e. Losses: 0 (09/27/2020 14:59:Aleksandra Angelo RN) RISK FACTORS IN THIS 49a. Diabetes: No (09/27/2020 14:59:Aleksandra Angelo RN) 49b. Hypertension: No (09/27/2020 14:59:Aleksandra Angelo RN) 49c. Previous Births: 4 (09/27/2020 14:59:Aleksandra Angelo RN) 49d. Stillborns: Yes (09/27/2020 14:59:Aleksandra Angelo RN) 49d. IUGR: Yes (09/27/2020 14:59:Aleksandra Angelo RN) 49e. Infertility Treatment: No (09/27/2020 14:59:Aleksandra Angelo RN) 49f. Previous Cesareans: 0 (09/27/2020 14:59:Aleksandra Angelo RN) Mother's Height 50b. Height Inches: 62 (10/09/2020 14:32:QS system process) Mother's Weight 51a. Pre- Weight (lbs): 89 (09/27/2020 14:59:Aleksandra Angelo RN) 51b. Weight at Delivery (lbs): 110 (10/09/2020 14:32:QS system process) 52. Dt Last Normal Menses Began: 01/24/2020 00:00 (09/27/2020 14:59:Katrin Herrera RN) Infections Present/Treated 53a. Gonorrhea: No (09/27/2020 14:59:Aleksandra Angelo RN) Results this Hospital Visit : Negative (09/27/2020 14:59:Katrin Herrera RN) 53b. Syphilis: No (09/27/2020 14:59:Aleksandra Angelo RN) Results this Hospital Visit: NONREACTIVE (10/08/2020 19:07:QS system process) 53c. Chlamydia: No (09/27/2020 14:59:Aleksandra Angelo RN) Results this Hospital Visit: Negative (09/27/2020 14:59:Katrin Herrera RN) 53d. Hepatitis B: No (09/27/2020 14:59:Aleksandra Angelo RN) Results this Hospital Visit: Negative (09/27/2020 14:59:Katrin Herrera RN) 53e. Hepatitis C: Negative (09/27/2020 14:59:Katrin Herrera RN) 53h. Mother Tested for HBsAG: Yes (09/27/2020 14:59:Katrin Herrera RN) 53i. Date Tested: 04/27/2020 00:00 (09/27/2020 14:59:Katrin Herrera RN) 53j. Test Result: Negative (09/27/2020 14:59:Katrin Herrera RN) Obstetric Procedures 54a, b, c. Obstetric Procedures: Ultrasound; NST; Cerclage (09/27/2020 14:59:Aleksandra Angelo RN) Cigarette Smoking Cigarette Smoking: Current Everyday Smoker. [id number] (09/27/2020 14:59:Aleksandra Angelo RN) 55a. 3 Months Before Preg - Ci (09/27/2020 14:59:Aleksandra Angelo RN) 55a. Packs: /2 (09/27/2020 14:59:Aleksandra Angelo RN) 55b. 1st Trimester of Preg- Ci (09/27/2020 14:59:Aleksandra Angelo RN) 55b. Packs: /2 (09/27/2020 14:59:Aleksandra Angelo RN) 55c. 2nd Trimester of Preg- Ci (09/27/2020 14:59:Aleksandra Angelo RN) 55c. Packs: 1/2 (09/27/2020 14:59:Aleksandra Angelo RN) 55d. 3rd Trimester of Preg- Ci (09/27/2020 14:59:Aleksandra Angelo RN) 55d. Packs: /2 (09/27/2020 14:59:Aleksandra Angelo RN) Onset of Labor 56a. PROM >12 Hrs: 9.30 (09/27/2020 14:59:QS system process) 56b. Precipitous Labor <3 Hrs: 2 (09/27/2020 14:59:QS system process) 56c. Prolonged Labor > 20 Hrs: 2 (09/27/2020 14:59:QS system process) 57a. Induction of Labor: Induction (09/27/2020 14:59:Hawa Singer RN) 57c. Non-Vertex Presentation A: Vertex (09/27/2020 14:59:Hawa Singer RN) 57d. Steroids - Lung Mat: Full Course (09/27/2020 14:59:Julio Christie MD ([facility])) 57d. Steroids - Lung Mat: Celestone 12mg IM - Dose 2 (10/08/2020 18:50:Aleksandra Angelo RN) 57d. Steroids - Lung Mat: Not Applicable (09/27/2020 14:59:Hawa Singer RN) 57f. Mat [place] or Temp >100.4: 98.6 (09/27/2020 14:59:Hawa Singer RN) 57g. Moderate/Heavy Meconium: Clear (10/09/2020 02:50:Kira Hannon RN) 57i. Epidural/Spinal Anesthesia: Epidural (09/27/2020 14:59:Julio Christie MD ([facility])) Method of Delivery 58a. Forceps - Unsuccessful A: N/A (09/27/2020 14:59:Hawa Singer RN) 58b. Vacuum - Unsuccessful A: N/A (09/27/2020 14:59:Hawa Singer RN) 58c. Presentation at 58c. Presentation at - A : Vertex (09/27/2020 14:59:[facility], RN) 58c. Presentation at - A : N/A (09/27/2020 14:59:[facility], RN) 58c. Presentation at - A : Cephalic (10/07/2020 12:20:Lisa Bates RN) Final Route and Method of Del 58d. Baby A Route/Delivery: Vaginal (09/27/2020 14:59:[facility], RN) 58e. Trial of Labor Attempted: No (09/27/2020 14:59:[facility], RN) 58e. Trial of Labor Attempted A: N/A (09/27/2020 14:59:[facility], RN) 58e. Trial of Labor Attempted B: N/A (09/27/2020 14:59:[facility], RN) Maternal Morbidity 59b. 3rd or 4th Degree Lacs: None (09/27/2020 14:59:Julio Christie MD ([facility])) Birthweight Baby A: 2060 (09/27/2020 14:59:Ana Nguyen, RN) 60a. Pounds : 4 (09/27/2020 14:59:QS system process) 60b. Ounces: 9 (09/27/2020 14:59:QS system process) 61. GA at Delivery Baby A: 37.0 (09/27/2020 14:59:Hawa Sales, RN) : Early Term- 37- 38.6 Weeks (09/27/2020 14:59:QS system process) 62a. 5 Minute Baby A: 9 (09/27/2020 14:59:QS system process)
[2020-10-09] MEDS: IBUPROFEN 800 MG TABLET PO SCH ×2 (15:27→21:13)
[2020-10-09] MEDS: FERROUS SULFATE 325 MG TABLET PO SCH (17:34)
[2020-10-09] MEDS: DOCUSATE SODIUM 100 MG CAPSULE PO SCH (17:34)
[2020-10-09] MEDS: LORAZEPAM 1 MG TABLET PO PRN (18:25)
[2020-10-09] MEDS: FAMOTIDINE 20 MG TABLET PO SCH (21:14)
[2020-10-09] MEDS: ACETAMINOPHEN WITH CODEINE #3 TABLET PO PRN (22:26)
[2020-10-10] MEDS: IBUPROFEN 800 MG TABLET PO SCH ×3 (06:03→21:22)
[2020-10-10 07:55] LABS: HEMATOCRIT 26.5 % (36.0-47.0); HEMOGLOBIN 9.1 g/dL (12.0-15.5); MEAN CORPUSCULAR HEMOGLOBIN 30.3 pg (27.0-33.4); MEAN CORPUSCULAR HGB CONC 34.4 g/dL (32.0-36.0); MEAN CORPUSCULAR VOLUME 88 fl (80-97); PLATELET COUNT 266 10^3/uL (150-450); RED BLOOD COUNT 3.01 10^6/uL (3.72-5.28); RED CELL DISTRIBUTION WIDTH 13.6 % (11.5-14.0); WHITE BLOOD COUNT 17.7 10^3/uL (4.0-10.5)
[2020-10-10] MEDS: PRENATAL VITAMIN W DHA CAPSULE PO SCH (09:51)
[2020-10-10] MEDS: FERROUS SULFATE 325 MG TABLET PO SCH ×2 (09:51→17:36)
[2020-10-10] MEDS: FAMOTIDINE 20 MG TABLET PO SCH ×2 (09:51→21:22)
[2020-10-10] MEDS: SENNOSIDES/DOCUSATE 8.6-50 MG 1 EACH TABLET PO SCH (09:51)
[2020-10-10] MEDS: DOCUSATE SODIUM 100 MG CAPSULE PO SCH ×2 (09:51→17:36)
[2020-10-10] MEDS: BUPRENORPHINE HCL 2 MG SUBLINGUAL TABLET SL SCH (09:51)
[2020-10-10] MEDS: ACETAMINOPHEN WITH CODEINE #3 TABLET PO PRN (13:21)
--- NOTE | 2020-10-10 14:02 | PDOC PROGRESS REPORT ---
Subjective-OB Progress Note for:: 10/10/20 Subjective: 35yo G6 now P6L5 s/p ppd 1. Pt is ambulating, and voiding without difficulty. Reports pain is well controlled with medication, no concerns today Physical Exam (OB) Vital Signs: Temp Pulse Resp BP Pulse Ox 98.1 F 90 16 107/79 97 10/10/20 07:39 10/10/20 07:33 10/10/20 07:33 10/10/20 07:33 10/10/20 07:33 Intake & Output 10/09/20 10/10/20 10/11/20 06:59 06:59 06:59 Intake Total 400 300 Balance 400 300 Weight 50.1 kg - General General Appearance: Appears well In distress: None - PIH/Pre-Eclampsia DTR's: 1 + Clonus: Negative Headache: Absent Epigastric Pain: No Visual Changes: No - Maternal Morbidity 59. Maternal Morbidity (serious complications experinced by the mother associated with labor and delivery: None of the above - Episiotomy/Laceration Site Condition: N/A - Lochia Lochia Amount: Small 10-25 ml Lochia Color: Rubra/Red - Abdomen Description: Soft Hernia Present: Yes Fundal Description: Firm, Midline Fundal Height: u/u - u/2 - Respiratory Respiratory Status: No respiratory distress - Extremities Upper extremity: Normal inspection Lower extremities: Normal inspection - Neurological Cognition: Normal Orientation: AAOx4 - Psychological Associated symptoms: Normal affect, Normal mood Objective-Diagnostic Laboratory: 10/10/20 07:30 10/10/20 07:30 WBC 17.7 H RBC 3.01 L Hgb 9.1 L Hct 26.5 L MCV 88 MCH 30.3 MCHC 34.4 RDW 13.6 Plt Count 266 Assessment and Plan(PN) - Assessment and Plan (1) Vaginal delivery Is this a current diagnosis for this admission?: Yes Plan: routine pp care (2) Smoker Is this a current diagnosis for this admission?: Yes Plan: s cessation encouraged (3) Bipolar disorder Qualifiers: Active/Remission status: remission status unspecified Qualified Code(s): F31.9 - Bipolar disorder, unspecified Is this a current diagnosis for this admission?: Yes Plan: discharge planning consult placed, continue to monitor (4) ADHD Qualifiers: Attention deficit-hyperactivity disorder type: unspecified Qualified Code(s): F90.9 - Attention-deficit hyperactivity disorder, unspecified type Is this a current diagnosis for this admission?: Yes Plan: discharge planning consult placed, continue to monitor (5) Intrauterine growth restriction affecting antepartum care of mother in third trimester Qualifiers: Fetus number: single or unspecified fetus Qualified Code(s): O36.5930 - Maternal care for other known or suspected poor growth, third trimester, not applicable or unspecified Is this a current diagnosis for this admission?: Yes Plan: delivered, routine pp care (6) Boyle cerclage present in third trimester Is this a current diagnosis for this admission?: Yes Plan: removed on admission (7) complicated by subutex maintenance, antepartum Is this a current diagnosis for this admission?: Yes - Time Spent with Patient Time with patient: Less than 15 minutes Medications reviewed and adjusted accordingly: Yes - Disposition Anticipated Discharge Disposition: Home, Self Care Anticipated Discharge Timeframe: within 24 hours
[2020-10-10] MEDS: LORAZEPAM 1 MG TABLET PO PRN (21:37)
[2020-10-11] MEDS: ACETAMINOPHEN WITH CODEINE #3 TABLET PO PRN ×2 (00:10→10:45)
[2020-10-11] MEDS: IBUPROFEN 800 MG TABLET PO SCH (05:42)
[2020-10-11] MEDS: FAMOTIDINE 20 MG TABLET PO SCH (09:14)
[2020-10-11] MEDS: SENNOSIDES/DOCUSATE 8.6-50 MG 1 EACH TABLET PO SCH (09:14)
[2020-10-11] MEDS: DOCUSATE SODIUM 100 MG CAPSULE PO SCH (09:14)
[2020-10-11] MEDS: FERROUS SULFATE 325 MG TABLET PO SCH (09:14)
[2020-10-11] MEDS: PRENATAL VITAMIN W DHA CAPSULE PO SCH (09:14)
[2020-10-11] MEDS: BUPRENORPHINE HCL 2 MG SUBLINGUAL TABLET SL SCH (09:14)
--- NOTE | 2020-10-11 09:35 | PDOC DISCHARGE SUMMARY ---
Impression - Admit/DC Date/PCP Admission Date/Primary Care Provider: 10/08/20 18:15 HERVE PACHECO MD Discharge Date: 10/11/20 - Discharge Diagnosis (1) ADHD Is this a current diagnosis for this admission?: Yes (2) Smoker Is this a current diagnosis for this admission?: Yes (3) Vaginal delivery Is this a current diagnosis for this admission?: Yes (4) Abdominal pain during in third trimester Is this a current diagnosis for this admission?: Yes (5) Bipolar 1 disorder Is this a current diagnosis for this admission?: Yes (6) Incarceration Is this a current diagnosis for this admission?: Yes (7) Incompetence of cervix Is this a current diagnosis for this admission?: Yes (8) Intrauterine growth restriction affecting antepartum care of mother in third trimester Is this a current diagnosis for this admission?: Yes (9) Boyle cerclage present in third trimester Is this a current diagnosis for this admission?: Yes (10) Non-compliance Is this a current diagnosis for this admission?: Yes (11) complicated by subutex maintenance, antepartum Is this a current diagnosis for this admission?: Yes (12) labor in third trimester Is this a current diagnosis for this admission?: Yes (13) Trichomonal vaginitis during in third trimester Is this a current diagnosis for this admission?: Yes - Additional Information Resuscitation Status: Full Code Discharge Diet: Regular Discharge Activity: Balance Activity w/Rest, Pelvic Rest Referrals: HERVE PACHECO MD [Primary Care Provider] - Prescriptions: Ferrous Sulfate [Feosol 325 mg Tablet] 325 mg PO BID #60 tablet Ibuprofen [Motrin 800 mg Tablet] 800 mg PO Q8 #60 tablet Home Medications: Buprenorphine HCl [Subutex 2 mg Sl Tablet] 12 mg SL DAILY 10/07/20 Prenat 115/Iron Fum/Folic/Dss [ 19 Tablet] 1 each PO DAILY 10/08/20 Ferrous Sulfate [Feosol 325 mg Tablet] 325 mg PO BID #60 tablet 10/11/20 Ibuprofen [Motrin 800 mg Tablet] 800 mg PO Q8 #60 tablet 10/11/20 HPI Gestational Age: 37 Reason(s) for Admission: Induction of Labor, Obstetric Complications, Other Procedures: NST Intrapartum Procedure(s): Spontaneous Vaginal Delivery Hospital Course 59. Maternal Morbidity (serious complications experinced by the mother associated with labor and delivery: None of the above Results Laboratory Results: WBC 17.7 10^3/uL (4.0-10.5) H 10/10/20 07:30 RBC 3.01 10^6/uL (3.72-5.28) L 10/10/20 07:30 Hgb 9.1 g/dL (12.0-15.5) L 10/10/20 07:30 Hct 26.5 % (36.0-47.0) L 10/10/20 07:30 MCV 88 fl (80-97) 10/10/20 07:30 MCH 30.3 pg (27.0-33.4) 10/10/20 07:30 MCHC 34.4 g/dL (32.0-36.0) 10/10/20 07:30 RDW 13.6 % (11.5-14.0) 10/10/20 07:30 Plt Count 266 10^3/uL (150-450) 10/10/20 07:30 Lymph % (Auto) 17.3 % (13-45) 10/08/20 19:07 [place] % (Auto) 6.8 % (3-13) 10/08/20 19:07 Eos % (Auto) 1.5 % (0-6) 10/08/20 19:07 Baso % (Auto) 0.4 % (0-2) 10/08/20 19:07 Absolute Neuts (auto) 7.7 10^3/uL (1.7-8.2) 10/08/20 19:07 Absolute Lymphs (auto) 1.8 10^3/uL (0.5-4.7) 10/08/20 19:07 Absolute Monos (auto) 0.7 10^3/uL (0.1-1.4) 10/08/20 19:07 Absolute Eos (auto) 0.2 10^3/uL (0.0-0.6) 10/08/20 19:07 Absolute Basos (auto) 0.0 10^3/uL (0.0-0.2) 10/08/20 19:07 Seg Neutrophils % 74.0 % (42-78) 10/08/20 19:07 Urine Color YELLOW 10/08/20 18:25 Urine Appearance SLIGHTLY-CLOUDY 10/08/20 18:25 Urine pH 8.0 (5.0-9.0) 10/08/20 18:25 Ur Specific [place] [facility] 1.013 10/08/20 18:25 Urine Protein NEGATIVE mg/dL (NEGATIVE) 10/08/20 18:25 Urine Glucose (UA) NEGATIVE mg/dL (NEGATIVE) 10/08/20 18:25 Urine Ketones NEGATIVE mg/dL (NEGATIVE) 10/08/20 18:25 Urine Blood NEGATIVE (NEGATIVE) 10/08/20 18:25 Urine Nitrite NEGATIVE (NEGATIVE) 10/08/20 18:25 Urine Bilirubin NEGATIVE (NEGATIVE) 10/08/20 18:25 Urine Urobilinogen NEGATIVE mg/dL (<2.0) 10/08/20 18:25 Ur Leukocyte Esterase NEGATIVE (NEGATIVE) 10/08/20 18:25 Urine Ascorbic Acid NEGATIVE (NEGATIVE) 10/08/20 18:25 Urine Opiates Screen NEGATIVE 10/08/20 18:25 Urine Methadone Screen NEGATIVE 10/08/20 18:25 Ur Barbiturates Screen NEGATIVE 10/08/20 18:25 Ur Phencyclidine Scrn NEGATIVE 10/08/20 18:25 Ur Amphetamines Screen NEGATIVE 10/08/20 18:25 U Benzodiazepines Scrn NEGATIVE 10/08/20 18:25 Urine Cocaine Screen NEGATIVE 10/08/20 18:25 U Marijuana (THC) Screen NEGATIVE 10/08/20 18:25 RPR NONREACTIVE (NONREACTIVE) 10/08/20 19:07 Blood Type O POSITIVE 10/08/20 19:07 Antibody Screen NEGATIVE 10/08/20 19:07 Plan Plan of Treatment: f/u at [facility] in 4 wks Time Spent: Less than 30 Minutes
[2020-10-11 11:23] VITALS: BP 107/62
== END 2020-10-11 14:04 | disposition home or self-care (01) | DRG 805 ==
LOC: LR 18:15 → 2S 10-09 14:31
PROVIDERS: ADMIT Obstetrics & Gynecology; ATTEND Obstetrics & Gynecology
PROC: 10E0XZZ Delivery of Products of Conception, External Approach (ICD-10-PCS; principal; 2020-10-09)
PROC: 3E033VJ Introduction of Other Hormone into Peripheral Vein, Percutaneous Approach (ICD-10-PCS; 2020-10-09)
DX: O36.5930 Maternal care for other known or suspected poor fetal growth, third trimester, not applicable or unspecified (principal); O34.33 Maternal care for cervical incompetence, third trimester; Z37.0 Single live birth; O98.32 Other infections with a predominantly sexual mode of transmission complicating childbirth; O99.323 Drug use complicating pregnancy, third trimester; F11.20 Opioid dependence, uncomplicated; F90.9 Attention-deficit hyperactivity disorder, unspecified type; O99.334 Smoking (tobacco) complicating childbirth; F17.210 Nicotine dependence, cigarettes, uncomplicated; O99.344 Other mental disorders complicating childbirth; F31.9 Bipolar disorder, unspecified; A59.01 Trichomonal vulvovaginitis; O62.3 Precipitate labor; Z20.828 Contact with and (suspected) exposure to other viral communicable diseases; Z91.19 Patient's noncompliance with other medical treatment and regimen; Z3A.37 37 weeks gestation of pregnancy; Z91.013 Allergy to seafood; Z79.899 Other long term (current) drug therapy
CPT/HCPCS: 1967; 36415; 80307; 81005; 85025; 85027; 86592; 86850; 86900; 86901; 88307; 94760; 96372; J0571; J0702; J2300; J2590; J2795; J3010; J3490